=== PATIENT | male | born 1965 | race Caucasian/White ===

== ENCOUNTER 2019-04-09 21:11 | Emergency (ER) | payer OTHER ==
[~2019-04-09] VITALS: Ht 185.4 cm; Wt 84.4 kg
[~2019-04-09 21:11] MED LIST: ALBU2.5V8 IH; ATOR10TA60 PO; ATOR20TA58 PO; DULO30CA43 PO; GABA600T7 PO; GEMF600T8 PO; HYDR-2155 PO; INSU100I11 SQ; INSU100V8 SQ; LANS30CA PO; METF750T2 PO; METO10TA PO; MORP50CA19 PO; NORT50CA PO; ONDA4TAB10 SL; RANI150T2 PO
[2019-04-09] MEDS ORDERED: IV NORMAL SALINE 1,000ML 1,000 ML IV ONE ×2 (21:45→23:00)
[2019-04-09] MEDS ORDERED: IOHEXOL 300 MG/ML 75 ML VIAL. IV ONE (22:00)
[2019-04-09] MEDS ORDERED: ONDANSETRON PF 4 MG/2 ML VIAL. IV ONE (22:00)
[2019-04-09 22:13] LABS: BASO # 0.1 x10^3/uL (0.0-0.2); BASO % 1 % (0-3); EOS # 0.3 x10^3/uL (0.0-0.7); EOS % 3 % (0-3); HEMATOCRIT 40.7 % (39.0-53.0); HEMOGLOBIN 13.5 g/dL (13.0-17.5); LYMPH % 24 % (24-48); MEAN CORPUSCULAR HEMOGLOBIN 29 pg (25-35); MEAN CORPUSCULAR HGB CONC 33 g/dL (31-37); MEAN CORPUSCULAR VOLUME 88 fL (79-100); MONO # 0.7 x10^3/uL (0.0-1.1); MONO % 8 % (0-9); NEUT # 5.3 x10^3uL (1.8-7.7); NEUT % 64 % (31-73); PLATELET COUNT 225 x10^3/uL (140-400); RED BLOOD COUNT 4.63 x10^6/uL (4.30-5.70); RED CELL DISTRIBUTION WIDTH 13.3 % (11.5-14.5); WHITE BLOOD COUNT 8.2 x10^3/uL (4.0-11.0)
[2019-04-09 22:31] LABS: ALBUMIN 3.5 g/dL (3.4-5.0); ALBUMIN/GLOBULIN RATIO 0.9 (1.0-1.7); CALCIUM 9.3 mg/dL (8.5-10.1); CREATININE 1.3 mg/dL (0.7-1.3); GFR 57.5; TOTAL BILIRUBIN 0.2 mg/dL (0.2-1.0); TOTAL PROTEIN 7.2 g/dL (6.4-8.2)
[2019-04-09] MEDS ORDERED: MORPHINE SULFATE 4 MG/ML DISP.SYRIN. IV ONE (23:00)
[2019-04-09] MEDS ORDERED: INSULIN REGULAR 100 UNIT/ML 3ML VIAL. IV ONE (23:00)
--- NOTE | 2019-04-09 23:24 | RAD ---
CT SCAN OF THE ABDOMEN AND PELVIS WITH IV CONTRAST. History: Abdominal pain Comparison:None. Procedure: Contiguous axial images of the abdomen and pelvis were performed after the administration of 75 cc of Omni 300 IV contrast and without oral contrast. CT Abdomen with contrast: Findings: Liver: Unremarkable Spleen: Unremarkable Pancreas: Unremarkable Adrenal Glands: Unremarkable Kidneys: Unremarkable There is no mass or lymphadenopathy. There is no free air. There is no free fluid. Impression: No acute findings. End Impression CT Pelvis with Contrast: Findings: The urinary bladder appears normal. There is no free fluid. There is no lymphadenopathy. The appendix is normal. Impression: No acute findings. PQRS Compliance Statement: One or more of the following individualized dose reduction techniques were utilized for this examination: 1. Automated exposure control 2. Adjustment of the mA and/or kV according to patient size 3. Use of iterative reconstruction technique Electronically signed by: Orlando Rouse III, MD (04/09/2019 11:21 PM) [facility]
--- NOTE | 2019-04-09 23:47 | PHYS DOC ---
Past History Past Medical History: Asthma, Diabetes, GERD, High Cholesterol, Other Past Surgical History: Cholecystectomy, Other Smoking: Cigarettes, Greater than 1 pack/day Alcohol Use: None Drug Use: None Adult General Chief Complaint Chief Complaint: ABDOMINAL PAIN HPI HPI 54-year-old male presents with epigastric abdominal pain and hyperglycemia. The patient is a diabetic on insulin. He knows that his blood sugar has been high today. He is not sure how high. He admits that he has had difficulty keeping it under 300 for a couple days. He is also had some epigastric discomfort on and off for several days. He has a history of pancreatitis and is concerned this could be the cause of his abdominal pain. He describes the pain as a cramping sensation. It is intermittent. Doesn't seem to have a pattern with food. Patient also states having fibromyalgia, so his skin is very sensitive. He denies fever or chills. Review of Systems Review of Systems Constitutional: Denies fever or chills [] Eyes: Denies change in visual acuity, redness, or eye pain [] HENT: Denies nasal congestion or sore throat [] Respiratory: Denies cough or shortness of breath [] Cardiovascular: No additional information not addressed in HPI [] GI: Epigastric abdominal pain, nausea, vomiting. Denies bloody stools or d iarrhea [] : Denies dysuria or hematuria [] Musculoskeletal: Denies back pain or joint pain [] Integument: Denies rash or skin lesions [] Neurologic: Denies headache, focal weakness or sensory changes [] Endocrine: Polyuria[] All other systems were reviewed and found to be within normal limits, except as documented in this note. Current Medications Current Medications Current Medications Medications (Trade) Dose Ordered Sig/[facility] Start Time Stop Time Status Last Admin Dose Admin Insulin Human Regular (HumuLIN R VIAL) 10 unit 1X ONCE 04/09/19 23:00 04/09/19 23:01 DC 04/09/19 22:48 10 UNIT Iohexol (Omnipaque 300 Mg/ml) 75 ml 1X ONCE 04/09/19 22:00 04/09/19 22:01 DC 04/09/19 22:41 75 ML Morphine Sulfate (Morphine 4mg Syringe) 4 mg 1X ONCE 04/09/19 23:00 04/09/19 23:01 DC 04/09/19 22:48 4 MG Ondansetron HCl (Zofran) 4 mg 1X ONCE 04/09/19 22:00 04/09/19 22:01 DC 04/09/19 21:57 4 MG Sodium Chloride 1,000 ml @ 1,000 mls/hr 1X ONCE 04/09/19 23:00 04/09/19 23:59 04/09/19 23:00 1,000 MLS/HR Allergies Allergies Allergies Coded Allergies Type Severity Reaction Last Updated Verified Penicillins Allergy Severe SWELLING 04/09/19 No Physical Exam Physical Exam Constitutional: Well developed, well nourished, no acute distress, non-toxic appearance. [] HENT: Normocephalic, atraumatic, bilateral external ears normal, oropharynx moist, no oral exudates, nose normal. [] Eyes: PERRLA, EOMI, conjunctiva normal, no discharge. [] Neck: Normal range of motion, no tenderness, supple, no stridor. [] Cardiovascular:Heart rate regular rhythm, no murmur [] Lungs & Thorax: Bilateral breath sounds clear to auscultation [] Abdomen: Bowel sounds normal, soft, mild diffuse tenderness, no masses, no pulsatile masses. [] Skin: Warm, dry, no erythema, no rash. [] Back: No tenderness, no CVA tenderness. [] Extremities: No tenderness, no cyanosis, no clubbing, ROM intact, no edema. [] Neurologic: Alert and oriented X 3, normal motor function, normal sensory function, no focal deficits noted. [] Psychologic: Affect normal, judgement normal, mood normal. [] Current Patient Data Vital Signs Vital Signs Date Time Temp Pulse Resp B/P (MAP) Pulse Ox O2 Delivery O2 Flow Rate FiO2 04/09/19 21:27 98.0 73 16 97 Room Air Lab Results Laboratory Tests Test 04/09/19 21:50 White Blood Count 8.2 x10^3/uL (4.0-11.0) Red Blood Count 4.63 x10^6/uL (4.30-5.70) Hemoglobin 13.5 g/dL (13.0-17.5) Hematocrit 40.7 % (39.0-53.0) Mean Corpuscular Volume 88 fL (79-100) Mean Corpuscular Hemoglobin 29 pg (25-35) Mean Corpuscular Hemoglobin Concent 33 g/dL (31-37) Red Cell Distribution Width 13.3 % (11.5-14.5) Platelet Count 225 x10^3/uL (140-400) Neutrophils (%) (Auto) 64 % (31-73) Lymphocytes (%) (Auto) 24 % (24-48) Monocytes (%) (Auto) 8 % (0-9) Eosinophils (%) (Auto) 3 % (0-3) Basophils (%) (Auto) 1 % (0-3) Neutrophils # (Auto) 5.3 x10^3uL (1.8-7.7) Lymphocytes # (Auto) 2.0 x10^3/uL (1.0-4.8) Monocytes # (Auto) 0.7 x10^3/uL (0.0-1.1) Eosinophils # (Auto) 0.3 x10^3/uL (0.0-0.7) Basophils # (Auto) 0.1 x10^3/uL (0.0-0.2) Sodium Level 130 mmol/L (136-145) L Potassium Level 4.0 mmol/L (3.5-5.1) Chloride Level 97 mmol/L (98-107) L Carbon Dioxide Level 21 mmol/L (21-32) Anion Gap 12 (6-14) Blood Urea Nitrogen 23 mg/dL (8-26) Creatinine 1.3 mg/dL (0.7-1.3) Estimated GFR (Cockcroft-Gault) 57.5 BUN/Creatinine Ratio 18 (6-20) Glucose Level 609 mg/dL (70-99) *H Calcium Level 9.3 mg/dL (8.5-10.1) Total Bilirubin 0.2 mg/dL (0.2-1.0) Aspartate Amino Transferase (AST) 8 U/L (15-37) L Alanine Aminotransferase (ALT) 12 U/L (16-63) L Alkaline Phosphatase 123 U/L (46-116) H Total Protein 7.2 g/dL (6.4-8.2) Albumin 3.5 g/dL (3.4-5.0) Albumin/Globulin Ratio 0.9 (1.0-1.7) L Lipase 169 U/L (73-393) EKG EKG [] Radiology/Procedures Radiology/Procedures [] Impressions: CT SCAN OF THE ABDOMEN AND PELVIS WITH IV CONTRAST. History: Abdominal pain Comparison:None. Procedure: Contiguous axial images of the abdomen and pelvis were performed after the administration of 75 cc of Omni 300 IV contrast and without oral contrast. CT Abdomen with contrast: Findings: Liver: Unremarkable Spleen: Unremarkable Pancreas: Unremarkable Adrenal Glands: Unremarkable Kidneys: Unremarkable There is no mass or lymphadenopathy. There is no free air. There is no free fluid. Impression: No acute findings. End Impression CT Pelvis with Contrast: Findings: The urinary bladder appears normal. There is no free fluid. There is no lymphadenopathy. The appendix is normal. Impression: No acute findings. PQRS Compliance Statement: One or more of the following individualized dose reduction techniques were utilized for this examination: 1. Automated exposure control 2. Adjustment of the mA and/or kV according to patient size 3. Use of iterative reconstruction technique Electronically signed by: Azucena Rouse III, MD (04/09/2019 11:21 PM) [facility] DICTATED AND SIGNED BY: AZUCENA ROUSE III, MD DATE: 04/09/192320 CC: DAQUAN GUTIÉRREZ DO; KELSY LEE MD ~ Course & Med Decision Making Course & Med Decision Making Pertinent Labs and Imaging studies reviewed. (See chart for details) The patient's labs are unremarkable except for an elevated blood sugar. His anion gap is normal. His lipase is normal. We have given the patient 2 L of normal saline and 10 units of regular insulin. His pain has improved. His repeat blood sugar is pending. The patient's repeat blood sugars just over 200. His CT of the abdomen and pelvis is unremarkable. He is feeling better at this time. He is stable for discharge. [] Dragon Disclaimer Dragon Disclaimer This electronic medical record was generated, in whole or in part, using a voice recognition dictation system. Departure Departure: Impression: Primary Impression: Hyperglycemia Disposition: HOME, SELF-CARE Condition: IMPROVED Referrals: KELSY LEE MD (PCP) Patient Instructions: Hyperglycemia, Tjdu-ay-Avin DAQUAN GUTIÉRREZ DO Apr 09, 2019 23:47
[2019-04-10 00:21] VITALS: BP 120/67
== END 2019-04-10 00:30 | disposition home or self-care (01) ==
LOC: ER 21:11
DX: E11.65 Type 2 diabetes mellitus with hyperglycemia (principal); R10.13 Epigastric pain; J45.909 Unspecified asthma, uncomplicated; K21.9 Gastro-esophageal reflux disease without esophagitis; E78.00 Pure hypercholesterolemia, unspecified; F17.210 Nicotine dependence, cigarettes, uncomplicated; Z90.49 Acquired absence of other specified parts of digestive tract; Z88.0 Allergy status to penicillin
CPT/HCPCS: 36415; 74177; 80053; 82947; 83690; 85025; 96361; 96374; 96375; 99285; J1815; J2270; J2405; Q9967; J7030

== ENCOUNTER → 2020-10-03 | Outpatient (CLI) | payer MEDICAID ==
[~2020-10-03] MED LIST changes: +DULO-4 PO; -DULO30CA43 PO; -METF750T2 PO; +METF750T39 PO
--- NOTE | 2020-10-03 13:37 | RAD ---
Right lower extremity venous duplex ultrasound study without comparison for right leg swelling. TECHNIQUE AND FINDINGS: Real-time grayscale and color Doppler evaluation of the right lower extremity is performed. The right common femoral, superficial femoral, and popliteal veins are patent demonstr ating normal compressibility and augmentation of flow. There is normal color flow in the posterior ti bial veins. IMPRESSION: 1. No evidence of DVT. Electronically signed by: Etienne Blanco MD (10/03/2020 1:35 PM) [id number]
== END ==
LOC: US 12:47
PROVIDERS: ATTEND Family Medicine
DX: R22.41 Localized swelling, mass and lump, right lower limb (principal)
CPT/HCPCS: 93971

== ENCOUNTER 2020-12-15 17:30 | Emergency (ER) | payer MEDICAID ==
[~2020-12-15] VITALS: Ht 185.4 cm; Wt 92.3 kg
[~2020-12-15 17:30] MED LIST changes: +GEMF-24 PO; -GEMF600T8 PO
--- NOTE | 2020-12-15 18:28 | PHYS DOC ---
Past History Past Medical History: Asthma, Diabetes, GERD, High Cholesterol, Other Past Surgical History: Cholecystectomy, Other Smoking: Cigarettes, Greater than 1 pack/day Alcohol Use: None Drug Use: None Adult General Chief Complaint Chief Complaint: HEADACHE HPI HPI Patient is a 55-year-old male who presents for chronic headache. States this has been going on "since I was 8 years old". Denies any trauma, recent ingestion or change in medications. Reports current headache has been going on for 3 days without relief. Describes it as dull tension-like headache. Patient has been taking previously prescribed Imitrex in addition to various NSAIDs without significant relief in pain. Nothing known alleviates symptoms. Timing of symptoms has been constant since onset. Has not followed up with his primary care physician for this. Is a cigarette abuser, denies any other illicit drug abuse. Reports history of noninsulin-dependent type 2 diabetes, mild chronic kidney disease only. Denies any known history of hypertension, does not check his blood pressure daily at home, states whenever he has checked it has been "high". Patient denies fever, chills, vision changes, chest pain, shortness of breath, abdominal pain, dysuria, neurologic deficits Review of Systems Review of Systems Fourteen body systems of review of systems have been reviewed. See HPI for pertinent positives and negative responses, other hassan all other systems are negative, non-pertinent or non-contributory Allergies Allergies Allergies Coded Allergies Type Severity Reaction Last Updated Verified Penicillins Allergy Severe SWELLING 04/09/19 No Physical Exam Physical Exam Constitutional: Well developed, well nourished, no acute distress, non-toxic appearance. Smells of tobacco HENT: Normocephalic, atraumatic, bilateral external ears normal, oropharynx moist, no oral exudates, nose normal. Eyes: PERRLA, EOMI, conjunctiva normal, no discharge. Neck: Normal range of motion, no tenderness, supple, no stridor. Cardiovascular: Heart rate regular, sinus rhythm, no murmurs rubs or gallops Lungs & Thorax: Bilateral crackles without increased work of breathing or accessory muscle use, no respiratory distress Abdomen: Bowel sounds normal, soft, no tenderness, no masses, no pulsatile masses. Nonsurgical abdomen, no peritoneal signs Skin: Warm, dry, no erythema, no rash. Back: No tenderness, no CVA tenderness. Extremities: No tenderness, no cyanosis, no clubbing, ROM intact, no edema. Neurologic: Alert and oriented X 3, cranial nerves II through XII intact, normal motor & sensory function, no focal deficits noted. Psychologic: Affect normal, judgement normal, grumpy mood Current Patient Data Vital Signs Vital Signs Date Time Temp Pulse Resp B/P (MAP) Pulse Ox O2 Delivery O2 Flow Rate FiO2 12/15/20 17:37 98.3 54 16 181/79 (113) 96 Room Air Lab Results Laboratory Tests Test 12/15/20 18:07 Sodium Level 139 mmol/L Potassium Level 5.1 mmol/L Chloride Level 106 mmol/L Carbon Dioxide Level 25 mmol/L Anion Gap 8 Blood Urea Nitrogen 25 mg/dL Creatinine 1.5 mg/dL Estimated GFR (Cockcroft-Gault) 48.6 Glucose Level 480 mg/dL Calcium Level 8.4 mg/dL Current Medications Medications (Trade) Dose Ordered Sig/[facility] Route PRN Reason Start Time Stop Time Status Last Admin Dose Admin Acetaminophen (Tylenol) 650 mg 1X ONCE PO 12/15/20 18:30 12/15/20 18:31 DC 12/15/20 18:40 Lisinopril (Prinivil) 5 mg 1X ONCE PO 12/15/20 19:30 12/15/20 19:31 DC 12/15/20 19:27 EKG EKG [] Radiology/Procedures Radiology/Procedures [] Heart Score C/O Chest Pain: No HEART Score for Chest Pain: HEART Score for Chest Pain Response (Comments) Value History Slighlty/Non-Suspicious 0 Age >45 - < 65 1 Risk Factors 1 or 2 Risk Factors 1 Total 2 Risk Factors: Risk Factors: DM, Current or recent (<one month) smoker, HTN, HLP, family history of CAD, obesity. Risk Scores: Risk Factors: DM, Current or recent (<one month) smoker, HTN, HLP, family history of CAD, obesity. Course & Med Decision Making Course & Med Decision Making Patient with high blood pressure otherwise hemodynamically stable with history consistent with chronic headaches. Physical exam unremarkable. Diagnostic work-up benign Patient using Imitrex and NSAIDs without relief. Patient likely has undiagnosed/untreated hypertension that is likely causing his presenting symptoms. Given he is diabetic with mild chronic kidney disease, discussed starting lisinopril I educated patient on medication and he was amenable to starting this today. 5 mg p.o. administered while in ER and tolerated well. Patient advised to keep blood pressure log to review with primary care physician at outpatient setting Patient has good access to primary care physician and can be seen this upcoming week which I feel is appropriate for repeat evaluation. Strict return precautions discussed with good understanding, all questions and concerns addr essed prior to your departure in stable condition Geovanna Disclaimer Dragon Disclaimer This electronic medical record was generated, in whole or in part, using a voice recognition dictation system. Departure Departure: Impression: Primary Impression: HTN (hypertension) Additional Impressions: Chronic headaches Diabetes Elevated serum creatinine Disposition: DC HOME SELF CARE/HOMELESS Condition: STABLE Referrals: KELSY LEE MD (PCP) Patient Instructions: Managing Your High Blood Pressure, Tension Headache Additional Instructions: You were seen for a headache. There is no emergent findings per your physical exam or diagnostic work-up while in ER setting. This is been a chronic problem for you, I suspect untreated/diagnosed hypertension as cause. You should cont inue to take prescribed lisinopril daily until you see your primary care physician for repeat evaluation. As discussed, please ensure you keep a daily blood pressure log for your primary care physician's review. You will need repeat labs at that time. You should return to the ED if you develop worsening pain, vision change, numbness, tingling, weakness, vomiting, fever, neck pain, or any other new or concerning symptoms. You need to follow up with your primary care physician for further evaluation and treatment. Scripts Lisinopril (LISINOPRIL) 5 Mg Tablet 1 TAB PO DAILY for HTN, #30 TAB 5 Refills Prov: RAYNA FRANKS DO 12/15/20 Problem Qualifiers RAYNA FRANKS DO Dec 15, 2020 18:28
[2020-12-15] MEDS ORDERED: ACETAMINOPHEN 325 MG TABLET PO ONE (18:30)
[2020-12-15 18:50] LABS: CALCIUM 8.4 mg/dL (8.5-10.1); CREATININE 1.5 mg/dL (0.7-1.3); GFR 48.6; POTASSIUM 5.1 mmol/L (3.5-5.1)
[2020-12-15 19:27] VITALS: BP 168/80
[2020-12-15] MEDS ORDERED: LISI-517 PO (19:28)
[2020-12-15] MEDS ORDERED: LISINOPRIL 5 MG TABLET. PO ONE (19:30)
== END 2020-12-15 19:35 | disposition home or self-care (01) ==
LOC: ER 17:30
DX: I10 Essential (primary) hypertension (principal); R51.9 Headache, unspecified; E11.9 Type 2 diabetes mellitus without complications; R79.89 Other specified abnormal findings of blood chemistry; J45.909 Unspecified asthma, uncomplicated; K21.9 Gastro-esophageal reflux disease without esophagitis; E78.00 Pure hypercholesterolemia, unspecified; F17.210 Nicotine dependence, cigarettes, uncomplicated; Z90.49 Acquired absence of other specified parts of digestive tract; Z88.0 Allergy status to penicillin
CPT/HCPCS: 36415; 80048; 99283

== ENCOUNTER 2020-12-18 08:31 | Emergency (ER) | payer MEDICAID ==
[~2020-12-18] VITALS: Ht 185.4 cm; Wt 92.3 kg
[~2020-12-18 08:31] MED LIST changes: +LISI-517 PO
[2020-12-18] MEDS ORDERED: DEXAMETHASONE SOD PHOS 10 MG/ML VIAL. IVP ONE (08:45)
[2020-12-18] MEDS ORDERED: PROCHLORPERAZINE 10 MG/2 ML VIAL. IV ONE (08:45)
[2020-12-18] MEDS ORDERED: diphenhydrAMINE 50 MG/ML VIAL IVP ONE (08:45)
[2020-12-18] MEDS ORDERED: IV RINGERS SOLUTION,LACTATED 1,000 ML IV SCH (08:45)
--- NOTE | 2020-12-18 08:46 | PHYS DOC ---
Past History Past Medical History: Asthma, Diabetes, GERD, High Cholesterol, Other Past Surgical History: Cholecystectomy, Other Smoking: Cigarettes, Greater than 1 pack/day Alcohol Use: None Drug Use: None General Adult EDM: Chief Complaint: HEADACHE HPI: HPI: 55-year-old male past medical history of hyperlipidemia, GERD, tobacco dependence and history of migraines, presents to the ED with complaints of headache for the past 2 weeks, located left side of his head with right jaw pain, was seen in ED 3 days ago for same complaint. States he's seen "all the specialists" for chronic migraines, "nothing works." Previously prescribed Imitrex and NSAIDs, reports no relief in pain with these medications. H/o "all the MRIs/CTs/studies." Does not know his official diagnosis, is a poor historian. Associated nausea and worsening vision but states "I've always had vision problems." Reports no history of hypertension. Was seen by Dr. Lee (pcp) 2 months ago (no HTN at that time) and was sent to ed to r/o RLE DVT (RLE swelling x 1 yr). EMR was reviewed. Creatinine on December 15 was 1.5 and blood pressure was 181/79. Was started on lisinopril [address] Nixon. Denies alcohol, IVDU or illicit drug use. Review of Systems: Review of Systems: Constitutional: Denies fever or chills Eyes: Denies vision loss or eye discharge HENT: Denies nasal congestion or sore throat Respiratory: Denies cough or shortness of breath Cardiovascular: Denies chest pain or edema GI: Denies abdominal pain, vomiting, bloody stools or diarrhea : Denies dysuria or hematuria Musculoskeletal: Denies back pain or joint pain Integument: Denies rash or diaphoresis Neurologic: Denies neck stiffness, focal weakness or sensory changes Endocrine: Denies polyuria or polydipsia Lymphatic: Denies swollen glands Psychiatric: Denies depression or anxiety Allergies: Allergies: Allergies Coded Allergies Type Severity Reaction Last Updated Verified Penicillins Allergy Severe SWELLING 04/09/19 No Physical Exam: PE: Constitutional: Well developed, well nourished, no acute distress, non-toxic appearance. HENT: Normocephalic, atraumatic, dry mucous membranes, no teeth Eyes: EOMI, conjunctiva normal, no discharge. Neck: Normal range of motion, supple, Cardiovascular: S1/2 present, regular rhythm Lungs & Thorax: Speaking in full sentences, bilateral equal chest rise, no tachypnea or increased work of breathing Abdomen: soft, no tenderness, Skin: Warm, dry, no erythema, no rash. [] Extremities: No tenderness, no cyanosis, mild pitting RLE edema > LLE Neurologic: Cranial nerves II through XII intact, alert and oriented X 3, normal motor function, normal sensory function, no focal deficits noted. [] Psychologic: flat affect, in no distress, does not appear to be concerned/worried, interruptions my exam to answer his cell phone EKG: EKG: Sinus rhythm at 73 bpm, normal intervals, T wave inversion lead III, no ST elevations or ST depressions, every third sinus beat there appears to be a PAC, will repeat EKG 1019 sinus rhythm 81 bpm, no axis deviation, normal intervals, no T wave inversions, no ST elevations or ST depressions with 2:1 conduction w/PAC Radiology/Procedures: Radiology/Procedures: IMAGING REPORT Signed PATIENT: NUNU HARMON ACCOUNT: [id number] : 1965 LOCATION: ER AGE: 55 SEX: M EXAM STATUS: REG ER ORD. PHYSICIAN: JUDY SAHNI DO REASON: headache PROCEDURE: CT HEAD WO CONTRAST INDICATION: Reason: headache / Spl. Instructions: / History: COMPARISON: None. TECHNIQUE: Axial CT images obtained through the head without intravenous contrast. One or more of the following individualized dose reduction techniques were utilized for this examination: 1. Automated exposure control; 2. Adjustment of the mA and/or kV according to patient size; 3. Use of iterative reconstruction technique. FINDINGS: No intracranial hemorrhage. No midline shift. Basal cisterns patents. Ventricles and sulci are globally prominent. No acute osseous abnormality. Orbits and paranasal sinuses unremarkable. Scattered foci of low attenuation within the white matter. IMPRESSION: 1. No acute intracranial hemorrhage. 2. Scattered regions of low attenuation within the white matter. Non-specific in nature but frequently secondary to chronic small vessel ischemic disease. 3. Prominence of ventricles and sulci which is frequently secondary to age related volume loss. Electronically signed by: Nilo Wheat MD (12/18/2020 9:08 AM) [id number] DICTATED AND SIGNED BY: NILO WHEAT MD DATE: 12/18/20902 CC: KELSY LEE MD; JUDY SAHNI DO ~MTH0 0 IMAGING REPORT Signed PATIENT: NUNU HARMON ACCOUNT: [id number] : 1965 LOCATION: ER AGE: 55 SEX: M EXAM STATUS: REG ER ORD. PHYSICIAN: JUDY SAHNI DO REASON: headache, short of breath PROCEDURE: PORTABLE CHEST 1V XR CHEST 1V Clinical History: Reason: headache, short of breath / Spl. Instructions: / History: Technique: AP view of the chest was obtained at 12/18/2020 8:44 AM. Comparison: None. Findings: The cardiomediastinal silhouette is normal. The pulmonary vasculature is normal. There is increased reticular opacities of lungs including curly B lines. Impression: Interstitial edema could be secondary to CHF or atypical pneumonia. Electronically signed by: Azucena Burgos III, MD (12/18/2020 9:06 AM) [id number] DICTATED AND SIGNED BY: AZUCENA BURGOS III, MD DATE: 12/18/20903 CC: KELSY LEE MD; JUDY SAHNI DO ~MTH0 0 Heart Score: C/O Chest Pain: No Risk Factors: Risk Factors: DM, Current or recent (<one month) smoker, HTN, HLP, family history of CAD, obesity. Risk Scores: Score 0 - 3: 2.5% MACE over next 6 weeks - Discharge Home Score 4 - 6: 20.3% MACE over next 6 weeks - Admit for Clinical Observation Score 7 - 10: 72.7% MACE over next 6 weeks - Early Invasive Strategies Course & Med Decision Making: Course & Med Decision Making Pertinent Labs and Imaging studies reviewed. (See chart for details) Chest x-ray concerning for atypical pneumonia versus interstitial infiltrates/CHF. Patient with no shortness of breath, orthopnea or chest pain. Given history of COPD will prescribe Z-Art and refer to cardiology for nonemergent outpatient echocardiogram. Dragon Disclaimer: Geovanna Disclaimer: This electronic medical record was generated, in whole or in part, using a voice recognition dictation system. Departure Departure: Impression: Primary Impression: Headache Additional Impressions: Uncontrolled hypertension Acute kidney injury Atypical pneumonia Disposition: 01 DC HOME SELF CARE/HOMELESS Condition: STABLE Referrals: KELSY LEE MD (PCP) Within 2 to 3 days for blood pressure recheck and to evaluate renal insufficiency Patient Instructions: Acute Kidney Injury, General Headache Without Cause, Hypertension Additional Instructions: FOLLOW UP WITH NEPHROLOGY: For renal insufficiency (creatinine of 1.5 and 1.6 yesterday and today respectively) [facility] Address: [address] [place] [address] [address] [place] [address] FOLLOW UP WITH CARDIOLOGY: For nonemergent echocardiogram given chest x-ray finding of interstitial edema/chf [facility] [address] [facility] [address] [place] [place] [address] [facility] [address] [place] [id number] EMERGENCY DEPARTMENT GENERAL DISCHARGE INSTRUCTIONS Thank you for coming to [facility] (ED) today and trusting us with you care. We trust that you had a positivie experience in our Emergency Department. If you wish to speak to the department management, you may call the director at [phone]. YOUR FOLLOW UP INSTRUCTIONS ARE FOLLOWS: 1. Do you have a private Doctor? If you do not have a private doctor, please ask for a resource list of physicians or clinics that may be able to assist you with follow up care. 2. The Emergency Physician has interpreted your x-rays. The X-Ray specialist will also review them. If there is a change in the findings, you will be notified in 48 hours when at all possible. 3. A lab test or culture has been done, your results will be reviewed and you will be notified if you need a change in treatment. ADDITIONAL INSTRUCTIONS AND INFORMATION: 1. Your care today has been supervised by a physician who is specially trained in emergency care. Many problems require more than one evaluation for a complete diagnosis and treatment. We recommend that you schedule your follow up appointment as recommended to ensure complete treatment of you illness or injury. If you are unable to obtain follow up care and continue to have a problem, or if your condition worsens, we recommend that you return to the ED. 2. We are not able to safely determine your condition over the phone nor are we able to give sound medical advice over the phone. For these safety reasons, if you call for medical advice we will ask you to come to the ED for further evaluation. 3. If you have any questions regarding these discharge instructions please call the ED at [phone]. SAFETY INFORMATION: In the interest of safety, wellness, and injury prevention; we encourage you to wear your sealbelt, if you smoke; quite smoking, and we encourage family to use a protective helmet for bicycling and other sporting events that present an increased risk for head injury. IF YOUR SYMPTOMS WORSEN OR NEW SYMPTOMS DEVELOP, OR YOU HAVE CONCERNS ABOUT YOUR CONDITION; OR IF YOUR CONDITION WORSENS WHILE YOU ARE WAITING FOR YOUR FOLLOW UP APPOINTMENT; EITHER CONTACT YOUR PRIMARY CARE DOCTOR, THE PHYSICIAN WHOSE NAME AND NUMBER YOU WERE GIVEN, OR RETURN TO THE ED IMMEDIATELY. Scripts Azithromycin (AZITHROMYCIN TABLET) 250 Mg Tablet 1 PKG PO UD for lung nodule for 5 Days, #6 TAB 0 Refills 2 the first day followed by 1 for days 2-5 Prov: JUDY SAHNI DO 12/18/20 JUDY SAHNI DO Dec 18, 2020 08:46
--- NOTE | 2020-12-18 08:53 | EKG ---
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
--- NOTE | 2020-12-18 09:08 | RAD ---
XR CHEST 1V Clinical History: Reason: headache, short of breath / Spl. Instructions: / History: Technique: AP view of the chest was obtained at 12/18/2020 8:44 AM. Comparison: None. Findings: The cardiomediastinal silhouette is normal. The pulmonary vasculature is normal. There is increased r eticular opacities of lungs including curly B lines. Impression: Interstitial edema could be secondary to CHF or atypical pneumonia. Electronically signed by: Orlando Rouse III, MD (12/18/2020 9:06 AM) [id number]
--- NOTE | 2020-12-18 09:10 | RAD ---
INDICATION: Reason: headache / Spl. Instructions: / History: COMPARISON: None. TECHNIQUE: Axial CT images obtained through the head without intravenous contrast. One or more of the following individualized dose reduction techniques were utilized for this examinat ion: 1. Automated exposure control; 2. Adjustment of the mA and/or kV according to patient size; 3 . Use of iterative reconstruction technique. FINDINGS: No intracranial hemorrhage. No midline shift. Basal cisterns patents. Ventricles and sulci are globally prominent. No acute osseous abnormality. Orbits and paranasal sinuses unremarkable. Scattered foci of low attenuation within the white matter. IMPRESSION: 1. No acute intracranial hemorrhage. 2. Scattered regions of low attenuation within the white matter. Non-specific in nature but frequen tly secondary to chronic small vessel ischemic disease. 3. Prominence of ventricles and sulci which is frequently secondary to age related volume loss. Electronically signed by: Lane Terry MD (12/18/2020 9:08 AM) [id number]
[2020-12-18 09:30] LABS: BASO # 0.1 x10^3/uL (0.0-0.2); BASO % 1 % (0-3); EOS # 0.3 x10^3/uL (0.0-0.7); EOS % 2 % (0-3); HEMATOCRIT 38.1 % (39.0-53.0); HEMOGLOBIN 12.5 g/dL (13.0-17.5); LYMPH # 1.6 x10^3/uL (1.0-4.8); LYMPH % 12 % (24-48); MEAN CORPUSCULAR HEMOGLOBIN 29 pg (25-35); MEAN CORPUSCULAR HGB CONC 33 g/dL (31-37); MEAN CORPUSCULAR VOLUME 89 fL (79-100); MONO # 0.8 x10^3/uL (0.0-1.1); MONO % 6 % (0-9); NEUT # 10.2 x10^3uL (1.8-7.7); NEUT % 79 % (31-73); PLATELET COUNT 203 x10^3/uL (140-400); RED BLOOD COUNT 4.28 x10^6/uL (4.30-5.70); RED CELL DISTRIBUTION WIDTH 13.2 % (11.5-14.5); WHITE BLOOD COUNT 12.9 x10^3/uL (4.0-11.0)
[2020-12-18 09:40] LABS: AMPHETAMINE/METHAMPHETAMINE NEG (NEG); BARBITURATES NEG (NEG); BENZODIAZEPINES NEG (NEG); CANNABINOIDS NEG (NEG); COCAINE NEG (NEG); METHADONE NEG (NEG); OPIATES NEG (NEG); PHENCYCLIDINE NEG (NEG)
[2020-12-18 09:42] LABS: CALCIUM 8.2 mg/dL (8.5-10.1); CREATININE 1.6 mg/dL (0.7-1.3); GFR 45.1; POTASSIUM 4.8 mmol/L (3.5-5.1)
[2020-12-18 09:48] LABS: ALBUMIN 2.4 g/dL (3.4-5.0); ALBUMIN/GLOBULIN RATIO 0.8 (1.0-1.7); TOTAL PROTEIN 5.5 g/dL (6.4-8.2)
[2020-12-18 09:49] LABS: BACTERIA,URINE 0 /HPF (0-FEW); BILIRUBIN,URINE NEG (NEG); CLARITY,URINE CLEAR; COLOR,URINE YELLOW; GLUCOSE,URINE >=1000 mg/dL (NEG); NITRITE,URINE NEG (NEG); UROBILINOGEN,URINE 0.2 mg/dL (0.2 mg/dL); WBC,URINE OCC /HPF (0-4)
[2020-12-18 09:50] LABS: HYALINE CASTS, URINE FEW /HPF; SQUAMOUS EPITHELIAL CELL,UR OCC /LPF
[2020-12-18 10:13] LABS: TOTAL BILIRUBIN 0.1 mg/dL (0.2-1.0)
--- NOTE | 2020-12-18 10:33 | EKG ---
[address] [address] Test Date: 2020-12-18 Test Time: 10:19:26 Pat Name: NUNU HARMON Department: Room: Gender: M [address] [address] Magistrate: LEBRON : 1965 Requested By: JUDY SAHNI Order Number: [id number] Reading MD: Measurements Intervals [place] Rate: 81 P: SD: QRS: 47 QRSD: 80 T: 29 QT: 370 QTc: 435 Interpretive Statements IRREGULAR RHYTHM, NO P-WAVE FOUND LOW LIMB LEAD VOLTAGE NO SPECIFIC ECG ABNORMALITIES RI6.02 No previous ECG available for comparison
[2020-12-18 11:44] VITALS: BP 128/90
[2020-12-18] MEDS ORDERED: AZIT250T6 PO (11:55)
== END 2020-12-18 12:24 | disposition home or self-care (01) ==
LOC: ER 08:31
DX: J18.9 Pneumonia, unspecified organism (principal); N17.9 Acute kidney failure, unspecified; I10 Essential (primary) hypertension; K21.9 Gastro-esophageal reflux disease without esophagitis; G43.909 Migraine, unspecified, not intractable, without status migrainosus; E78.00 Pure hypercholesterolemia, unspecified; E11.9 Type 2 diabetes mellitus without complications; J45.909 Unspecified asthma, uncomplicated; F17.210 Nicotine dependence, cigarettes, uncomplicated; Z90.49 Acquired absence of other specified parts of digestive tract; Z88.0 Allergy status to penicillin
CPT/HCPCS: 36415; 70450; 71045; 80053; 80307; 81001; 83880; 84484; 85025; 93005; 96361; 96374; 96375; 99285; J0780; J1100; J1200; J7120

== ENCOUNTER 2021-01-13 01:47 | Emergency (ER) | payer MEDICAID ==
[~2021-01-13] VITALS: Ht 185.4 cm; Wt 92.3 kg
[~2021-01-13 01:47] MED LIST changes: +AZIT250T6 PO
--- NOTE | 2021-01-13 02:29 | EKG ---
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
[2021-01-13 02:40] LABS: BASO # 0.1 x10^3/uL (0.0-0.2); BASO % 1 % (0-3); EOS # 0.5 x10^3/uL (0.0-0.7); EOS % 4 % (0-3); HEMATOCRIT 32.1 % (39.0-53.0); HEMOGLOBIN 10.6 g/dL (13.0-17.5); LYMPH # 2.1 x10^3/uL (1.0-4.8); LYMPH % 20 % (24-48); MEAN CORPUSCULAR HEMOGLOBIN 30 pg (25-35); MEAN CORPUSCULAR HGB CONC 33 g/dL (31-37); MEAN CORPUSCULAR VOLUME 89 fL (79-100); MONO % 9 % (0-9); NEUT # 7.1 x10^3uL (1.8-7.7); NEUT % 66 % (31-73); PLATELET COUNT 241 x10^3/uL (140-400); RED BLOOD COUNT 3.59 x10^6/uL (4.30-5.70); RED CELL DISTRIBUTION WIDTH 15.4 % (11.5-14.5); WHITE BLOOD COUNT 10.8 x10^3/uL (4.0-11.0)
[2021-01-13 02:45] LABS: CALCIUM 7.7 mg/dL (8.5-10.1); CREATININE 2.2 mg/dL (0.7-1.3); GFR 31.2; POTASSIUM 4.8 mmol/L (3.5-5.1)
[2021-01-13 02:59] LABS: ALBUMIN 1.8 g/dL (3.4-5.0); ALBUMIN/GLOBULIN RATIO 0.6 (1.0-1.7); MAGNESIUM 1.4 mg/dL (1.8-2.4); TOTAL BILIRUBIN 0.1 mg/dL (0.2-1.0); TOTAL PROTEIN 4.6 g/dL (6.4-8.2)
[2021-01-13] MEDS ORDERED: diphenhydrAMINE HCL 25 MG CAPSULE PO ONE (03:00)
[2021-01-13] MEDS ORDERED: ACETAMINOPHEN 500 MG TABLET PO ONE (03:00)
--- NOTE | 2021-01-13 03:02 | PHYS DOC ---
Past History Past Medical History: Asthma, CHF, Diabetes, GERD, High Cholesterol, Other Past Surgical History: Cholecystectomy, Other Smoking: Cigarettes, Greater than 1 pack/day Alcohol Use: None Drug Use: None Adult General Chief Complaint Chief Complaint: LOWER EXTREMITY SWELLING HPI HPI Patient is a 55-year-old male with a past medical history significant for congestive heart failure, and diabetes who presents to the emergency department with a chief complaint of bilateral lower extremity swelling. States over the past couple of weeks he has noticed the swelling in his legs bilaterally. States he has had this before but it has been a while. States he thinks he has gained a little bit of weight as well. Denies any dyspnea on exertion, orthopnea, PND. Denies any recent travel, traumas, illnesses, fevers or known ill contacts. Denies any chest pain, diaphoresis, abdominal pain, nausea, vomiting, dysuria, hematuria or blood in the stool. Denies any alcohol or drug use. States he has been otherwise eating and drinking normally for him. States he is making urine and stool proximally normally for him. Review of Systems Review of Systems Constitutional: Denies fever or chills [] Eyes: Denies change in visual acuity, redness, or eye pain [] HENT: Denies nasal congestion or sore throat [] Respiratory: Denies cough or shortness of breath [] Cardiovascular: No additional information not addressed in HPI [] GI: Denies abdominal pain, nausea, vomiting, bloody stools or diarrhea [] : Denies dysuria or hematuria [] Musculoskeletal: Denies back pain or joint pain [] Integument: Denies rash or skin lesions [] Neurologic: Denies headache, focal weakness or sensory changes [] Endocrine: Denies polyuria or polydipsia [] All other systems were reviewed and found to be within normal limits, except as documented in this note. Current Medications Current Medications Current Medications Medications (Trade) Dose Ordered Sig/Marilou Start Time Stop Time Status Last Admin Dose Admin Acetaminophen (Tylenol) 1,000 mg 1X ONCE 01/13/21 03:00 01/13/21 03:01 01/13/21 02:32 1,000 MG Diphenhydramine HCl (Benadryl) 25 mg 1X ONCE 01/13/21 03:00 01/13/21 03:01 01/13/21 02:32 25 MG Allergies Allergies Allergies Coded Allergies Type Severity Reaction Last Updated Verified Penicillins Allergy Severe SWELLING 04/09/19 No Physical Exam Physical Exam Constitutional: Well developed, well nourished, no acute distress, non-toxic appearance. [] HENT: Normocephalic, atraumatic, bilateral external ears normal, oropharynx moist, no oral exudates, nose normal. [] Eyes: conjunctiva normal, no discharge. [] Neck: Normal range of motion, no tenderness, supple, no stridor. [] Cardiovascular:Heart rate regular rhythm, no murmur [] Lungs & Thorax: Patient with scant bilateral lower lobe rhonchi but moving air well and not tachypneic] Abdomen: soft, no tenderness, no masses, no pulsatile masses. [] Skin: Warm, dry, no erythema, no rash. [] Back: no CVA tenderness. [] Extremities: No tenderness, no cyanosis, no clubbing, ROM intact, 1+ pitting edema. [] Neurologic: Alert and oriented X 3, normal motor function, normal sensory function, no focal deficits noted. [] Psychologic: Affect normal, judgement normal, mood normal. [] Current Patient Data Vital Signs Vital Signs Date Time Temp Pulse Resp B/P (MAP) Pulse Ox O2 Delivery O2 Flow Rate FiO2 01/13/21 02:33 87 20 159/93 (115) 98 Room Air 01/13/21 02:05 97.8 Lab Results Laboratory Tests Test 01/13/21 02:25 White Blood Count 10.8 x10^3/uL (4.0-11.0) Red Blood Count 3.59 x10^6/uL (4.30-5.70) L Hemoglobin 10.6 g/dL (13.0-17.5) L Hematocrit 32.1 % (39.0-53.0) L Mean Corpuscular Volume 89 fL (79-100) Mean Corpuscular Hemoglobin 30 pg (25-35) Mean Corpuscular Hemoglobin Concent 33 g/dL (31-37) Red Cell Distribution Width 15.4 % (11.5-14.5) H Platelet Count 241 x10^3/uL (140-400) Neutrophils (%) (Auto) 66 % (31-73) Lymphocytes (%) (Auto) 20 % (24-48) L Monocytes (%) (Auto) 9 % (0-9) Eosinophils (%) (Auto) 4 % (0-3) H Basophils (%) (Auto) 1 % (0-3) Neutrophils # (Auto) 7.1 x10^3uL (1.8-7.7) Lymphocytes # (Auto) 2.1 x10^3/uL (1.0-4.8) Monocytes # (Auto) 1.0 x10^3/uL (0.0-1.1) Eosinophils # (Auto) 0.5 x10^3/uL (0.0-0.7) Basophils # (Auto) 0.1 x10^3/uL (0.0-0.2) Sodium Level 141 mmol/L (136-145) Potassium Level 4.8 mmol/L (3.5-5.1) Chloride Level 111 mmol/L (98-107) H Carbon Dioxide Level 21 mmol/L (21-32) Anion Gap 9 (6-14) Blood Urea Nitrogen 41 mg/dL (8-26) H Creatinine 2.2 mg/dL (0.7-1.3) H Estimated GFR (Cockcroft-Gault) 31.2 BUN/Creatinine Ratio 19 (6-20) Glucose Level 228 mg/dL (70-99) H Calcium Level 7.7 mg/dL (8.5-10.1) L Magnesium Level Pending Total Bilirubin Pending Aspartate Amino Transferase (AST) Pending Alanine Aminotransferase (ALT) Pending Alkaline Phosphatase Pending Troponin I Quantitative 0.025 ng/mL (0-0.055) VX-Yak-G-Type Natriuretic Peptide Pending Total Protein Pending Albumin Pending Albumin/Globulin Ratio Pending EKG EKG Rate of 85, QRS of 78, QTc of 410, no STEMI [] Radiology/Procedures Radiology/Procedures []Study: XR CHEST 1V Indication: Cardiac workup. Comparison: 12/18/2020 Findings: Similar configuration of the cardiomediastinal silhouette and jayy from the prior to include cephalization of the central vasculature. Mildly increased interstitial markings but slightly less pronounced from the prior. No confluent infiltrate, layering effusion or pneumothorax. Mild flattening of the diaphragm. Impression: Mild cephalization of the central vasculature could indicate a volume overload state. There are mildly increased interstitial markings but manifestations of interstitial edema on the comparison are less noticeable on this exam. No layering effusion. Electronically signed by: DAVEY SOLIS MD (01/13/2021 3:00 AM) [facility] Heart Score C/O Chest Pain: No Risk Factors: Risk Factors: DM, Current or recent (<one month) smoker, HTN, HLP, family history of CAD, obesity. Risk Scores: Risk Factors: DM, Current or recent (<one month) smoker, HTN, HLP, family history of CAD, obesity. Course & Med Decision Making Course & Med Decision Making Patient is a 55-year-old male who presents with a chief complaint of bilateral lower extremity edema Signs notable for hypertension. Physical exam noted above. Patient placed on the monitor. EKG noted above with no STEMI. Laboratory analysis notable for elevated BNP, mildly elevated creatinine, mild hypomagnesemia, mild hypocalcemia. Magnesium and calcium replaced p.o. Imaging notable for probable mild pulmonary edema. Given patient's history, symptoms and laboratory analysis patient mildly fluid overloaded. Started on Lasix in the emergency department. Discussed all findings with patient and offered admission to the hospital for continued evaluation, treatment and diuresis as well as electrolyte replacement and medication management. Patient states that he is absolutely not going to s [facility] in the hospital tonight and will take his medicine as prescribed and call Dr. Amadou Lee, his primary care physician for first thing Friday morning. Discussed with patient the risks of this including continue swelling, shortness of breath, chest pain, and the worst case scenario lightheadedness, syncope, fall, disability and/or . Patient states that he is a little swollen but otherwise feels well, wants to go home and talk to his primary care physician Friday. Gave strict return precautions to the ED. Patient grateful, verbalized understanding and agreed with plan of discharge. Dragon Disclaimer Dragon Disclaimer This electronic medical record was generated, in whole or in part, using a voice recognition dictation system. Departure Departure: Impression: Primary Impression: Bilateral lower extremity edema Additional Impressions: Pulmonary edema Elevated brain natriuretic peptide (BNP) level Hypomagnesemia Elevated serum creatinine Disposition: HOME / SELF CARE / HOMELESS Condition: IMPROVED Referrals: KELSY LEE MD (PCP) Patient Instructions: Edema, Hypomagnesemia, Pulmonary Edema Additional Instructions: Please read all of the attached information very carefully. Please take your water pills/diuretics as prescribed and discussed. As discussed please keep your sodium levels low in your diet as to not raise your blood pressure and retain more fluid. You were offered admission to the hospital for continued evaluation and treatment of your edema and electrolyte management but he stated that you would prefer to go home and talk to your primary care physician on Friday. We discussed the risks of this including continued retention of water in your legs and lungs, shortness of breath, chest pain, and in the worst case scenarios lightheadedness, fainting and falling, disability, severe illness and/or . Please be sure to call your primary care physician immediately Friday morning to discuss your ED visit and get in for a follow-up visit that day if possible to discuss your medication needs and repeat laboratory analysis. Please eat nutritious meals before then and take your vitamins as well. Scripts Furosemide (LASIX) 20 Mg Tablet 1 TAB PO DAILY for diuresis for 5 Days, #5 TAB 0 Refills Prov: GAVIN JOSEPH MD 01/13/21 Problem Qualifiers GAVIN JOSEPH MD Jan 13, 2021 03:02
--- NOTE | 2021-01-13 03:03 | RAD ---
Study: XR CHEST 1V Indication: Cardiac workup. Comparison: 12/18/2020 Findings: Similar configuration of the cardiomediastinal silhouette and jayy from the prior to include cephaliz ation of the central vasculature. Mildly increased interstitial markings but slightly less pronounced from the prior. No confluent infi ltrate, layering effusion or pneumothorax. Mild flattening of the diaphragm. Impression: Mild cephalization of the central vasculature could indicate a volume overload state. There are mildl y increased interstitial markings but manifestations of interstitial edema on the comparison are less noticeable on this exam. No layering effusion. Electronically signed by: DAVEY SOLIS MD (01/13/2021 3:00 AM) [facility]
[2021-01-13 03:28] VITALS: BP 175/78
[2021-01-13] MEDS ORDERED: FUROSEMIDE 40 MG/4 ML VIAL IVP ONE (03:30)
[2021-01-13] MEDS ORDERED: FURO-69 PO (03:39)
[2021-01-13] MEDS ORDERED: CALCIUM CARBONATE 500 MG TABLET PO ONE (04:00)
[2021-01-13] MEDS ORDERED: MAGNESIUM OXIDE 400 MG TABLET PO ONE (04:00)
== END 2021-01-13 03:58 | disposition home or self-care (01) ==
LOC: ER 01:47
DX: J81.1 Chronic pulmonary edema (principal); E83.42 Hypomagnesemia; R79.89 Other specified abnormal findings of blood chemistry; K21.9 Gastro-esophageal reflux disease without esophagitis; E11.9 Type 2 diabetes mellitus without complications; E78.00 Pure hypercholesterolemia, unspecified; J45.909 Unspecified asthma, uncomplicated; F17.210 Nicotine dependence, cigarettes, uncomplicated; Z86.79 Personal history of other diseases of the circulatory system; Z88.0 Allergy status to penicillin
CPT/HCPCS: 36415; 71045; 80053; 83735; 83880; 84484; 85025; 93005; 96374; 99285; J1940; Q0163

== ENCOUNTER 2021-01-14 21:03 | Observation (INO) | payer MEDICAID ==
[~2021-01-14] VITALS: Ht 186.7 cm; Wt 109.0 kg
[~2021-01-14 21:03] MED LIST changes: +FURO-69 PO
--- NOTE | 2021-01-14 22:03 | PHYS DOC ---
Past History Past Medical History: Asthma, CHF, Diabetes, GERD, High Cholesterol, Other Past Surgical History: Cholecystectomy, Other Smoking: Cigarettes, Greater than 1 pack/day Alcohol Use: None Drug Use: None General Adult EDM: Chief Complaint: LOWER EXTREMITY EDEMA HPI: HPI: 55-year-old male returns emergency room via EMS with continued bilateral lower extremity edema as well as left arm edema. The patient was seen in this facilit y by my colleague a couple days ago. He was placed on a "water pill". He tells me he has been taking them as prescribed. He denies having much urination. He feels like the swelling is worse. He has had an intermittent cough. He does not feel more short of breath than usual. He has COPD at baseline. Patient also complains of a persistent headache that he has had for couple weeks. He denies fever or chills. Denies trauma or falls. Review of Systems: Review of Systems: Constitutional: Denies fever or chills Eyes: Denies change in visual acuity HENT: Denies nasal congestion or sore throat Respiratory: Denies cough or shortness of breath Cardiovascular: Peripheral edema GI: Denies abdominal pain, nausea, vomiting, bloody stools or diarrhea : Denies dysuria Musculoskeletal: Denies back pain or joint pain Integument: Denies rash Neurologic: Denies headache, focal weakness or sensory changes Endocrine: Denies polyuria or polydipsia Lymphatic: Denies swollen glands Psychiatric: Denies depression or anxiety Allergies: Allergies: Allergies Coded Allergies Type Severity Reaction Last Updated Verified Penicillins Allergy Severe SWELLING 01/14/21 No Physical Exam: PE: Constitutional: Well developed, well nourished, no acute distress, non-toxic appearance. [] HENT: Normocephalic, atraumatic, bilateral external ears normal, oropharynx moist, no oral exudates, nose normal. [] Eyes: PERRLA, EOMI, conjunctiva normal, no discharge. [] Neck: Normal range of motion, no tenderness, supple, no stridor. [] Cardiovascular: Heart rate 86, regular rhythm, no murmur [] Lungs & Thorax: Bilateral breath sounds diminished [] Abdomen: Bowel sounds normal, soft, no tenderness, no masses, no pulsatile masses. [] Skin: Warm, dry, no erythema, no rash. [] Back: No tenderness, no CVA tenderness. [] Extremities: No tenderness, no cyanosis, no clubbing, ROM intact. 3+ pitting edema bilateral lower extremities right worse than left. 2+ pitting edema of the left upper extremity to the elbow. [] Neurologic: Alert and oriented X 3, normal motor function, normal sensory function, no focal deficits noted. [] Psychologic: Affect normal, judgement normal, mood normal. [] Current Patient Data: Vital Signs: Vital Signs Date Time Temp Pulse Resp B/P (MAP) Pulse Ox O2 Delivery O2 Flow Rate FiO2 01/14/21 21:03 98.3 52 20 171/78 (109) 96 Room Air EKG: EKG: [] Radiology/Procedures: Radiology/Procedures: [] Heart Score: C/O Chest Pain: No Risk Factors: Risk Factors: DM, Current or recent (<one month) smoker, HTN, HLP, family history of CAD, obesity. Risk Scores: Score 0 - 3: 2.5% MACE over next 6 weeks - Discharge Home Score 4 - 6: 20.3% MACE over next 6 weeks - Admit for Clinical Observation Score 7 - 10: 72.7% MACE over next 6 weeks - Early Invasive Strategies Course & Med Decision Making: Course & Med Decision Making Pertinent Labs and Imaging studies reviewed. (See chart for details) The patient's labs are suggestive of CHF. See official read for more details. His creatinine is 2.5. He did eventually spontaneously urinate. I will give him 40 mg of Lasix IV and will do a CT of the abdomen pelvis without contrast to rule out obvious obstructive pathology. I spoke with the hospitalist, Dr. Crawford and he has accepted the patient for admission and further treatment. [] Dragon Disclaimer: Dragon Disclaimer: This electronic medical record was generated, in whole or in part, using a voice recognition dictation system. Departure Departure: Impression: Primary Impression: CHF (congestive heart failure) Qualified Codes: I50.21 - Acute systolic (congestive) heart failure Additional Impression: Elevated serum creatinine Disposition: ADMITTED INPATIENT Admitting Physician: Eladio Crawford Condition: STABLE Referrals: KELSY LEE MD (PCP) DAQUAN GUTIÉRREZ DO Jan 14, 2021 22:03
[2021-01-14 22:29] LABS: BASO # 0.2 x10^3/uL (0.0-0.2); BASO % 2 % (0-3); EOS # 0.4 x10^3/uL (0.0-0.7); EOS % 4 % (0-3); HEMATOCRIT 31.6 % (39.0-53.0); HEMOGLOBIN 10.4 g/dL (13.0-17.5); LYMPH # 1.4 x10^3/uL (1.0-4.8); LYMPH % 15 % (24-48); MEAN CORPUSCULAR HEMOGLOBIN 30 pg (25-35); MEAN CORPUSCULAR HGB CONC 33 g/dL (31-37); MEAN CORPUSCULAR VOLUME 90 fL (79-100); MONO # 0.9 x10^3/uL (0.0-1.1); MONO % 9 % (0-9); NEUT % 71 % (31-73); PLATELET COUNT 209 x10^3/uL (140-400); RED BLOOD COUNT 3.51 x10^6/uL (4.30-5.70); RED CELL DISTRIBUTION WIDTH 15.2 % (11.5-14.5); WHITE BLOOD COUNT 9.9 x10^3/uL (4.0-11.0)
[2021-01-14] MEDS ORDERED: ONDANSETRON PF 4 MG/2 ML VIAL. IVP ONE (22:30)
[2021-01-14] MEDS ORDERED: MORPHINE SULFATE 2 MG/ML DISP.SYRIN. IV ONE (22:30)
[2021-01-14 22:33] LABS: CREATININE 2.5 mg/dL (0.7-1.3); GFR 26.9; POTASSIUM 5.4 mmol/L (3.5-5.1)
[2021-01-14 22:45] LABS: ALBUMIN 1.8 g/dL (3.4-5.0); ALBUMIN/GLOBULIN RATIO 0.5 (1.0-1.7); TOTAL BILIRUBIN 0.1 mg/dL (0.2-1.0); TOTAL PROTEIN 5.1 g/dL (6.4-8.2)
[2021-01-15] MEDS ORDERED: FUROSEMIDE 40 MG/4 ML VIAL IVP ONE (01:00)
[2021-01-15 01:02] LABS: BILIRUBIN,URINE NEG (NEG); CLARITY,URINE CLEAR; COLOR,URINE YELLOW; GLUCOSE,URINE 250 mg/dL (NEG); NITRITE,URINE NEG (NEG); RBC,URINE OCC /HPF (0-2); UROBILINOGEN,URINE 0.2 mg/dL (0.2 mg/dL)
[2021-01-15 01:03] LABS: BACTERIA,URINE 0 /HPF (0-FEW); SQUAMOUS EPITHELIAL CELL,UR FEW /LPF
[2021-01-15] MEDS ORDERED: ONDANSETRON PF 4 MG/2 ML VIAL. IVP PRN (01:30)
--- NOTE | 2021-01-15 01:32 | EKG ---
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
--- NOTE | 2021-01-15 01:45 | RAD ---
CT abdomen pelvis without contrast dated 01/15/2021. Comparison made to 04/09/2019. CLINICAL INDICATION: Pain. Rule out urinary obstruction. TECHNIQUE: Continues axial imaging the M pelvis performed without the administration of IV or oral contrast. One or more of the following individualized dose reduction techniques were utilized for this examinat ion: 1. Automated exposure control 2. Adjustment of the mA and/or kV according to patient size 3. Use of iterative reconstruction technique. FINDINGS: Images of lung bases show small bilateral pleural effusions, right greater than left. Linear bands of increased density in the lower lobes, lingula and right middle lobe, likely scar or atelectasis. Hea rt size is within normal limits. No pericardial effusion. Solid abdominal viscera not well evaluated in the absence of contrast material. No apparent attenuati on abnormality of the liver or spleen. Pancreas, adrenal glands unremarkable. The gallbladder is surg ically absent. Tiny low-density nodule at the right adrenal gland is unchanged from prior exam and li elizabeth represents a small adenoma. Kidneys are symmetric in size and attenuation. No calcific renal or ureteral stone. No hydronephrosis . Small nodular focus at the medial midpole right kidney is indeterminate but unchanged. Unopacified GI tract normal in caliber and contour. No focal bowel wall thickening. No inflammatory s tranding in the mesentery. The appendix is normal in caliber. No ascites or lymphadenopathy. There ar e scattered diverticula within the distal colon. Images of pelvis show nondistended urinary bladder. Prostate gland normal in size. No free fluid. Sma ll bilateral inguinal hernia containing only fat. There is generalized anasarca. Bone windows show no acute findings. Mild multilevel spondylosis. IMPRESSION: 1. No acute abnormality of abdomen or pelvis. No evidence of renal stone or hydronephrosis. 2. Diverticulosis with no evidence of acute diverticulitis. 3. Small bilateral pleural effusions, right greater than left. 4. Generalized anasarca. 5. Indeterminate small nodule at the medial mid to lower pole right kidney, indeterminate but unchang ed. Electronically signed by: Mekhi Teran MD (01/15/2021 1:43 AM) [facility]
[2021-01-15 02:10] VITALS: BP 160/77
[2021-01-15] MEDS ORDERED: ACETAMINOPHEN 325 MG TABLET PO PRN (02:45)
--- NOTE | 2021-01-15 02:48 | RAD ---
Single view chest dated 01/14/2021. Comparison made to 01/13/2021. CLINICAL INDICATION: Edema. FINDINGS: Single upright portable exam performed. Heart and mediastinal contours are stable. There is some patc hy perihilar opacity with prominent linear markings, similar to prior study. No new infiltrate or ple ural effusion. No pneumothorax. IMPRESSION: Mild perihilar airspace disease, not significantly changed from prior exam. Electronically signed by: Mekhi Teran MD (01/15/2021 2:46 AM) TAYE
--- NOTE | 2021-01-15 03:00 | NUR ---
Admission: The patient, NUNU HARMON, 55 y/o, M admitted by JULIEN NAVARRO MD, was given written information regarding hospital policies, unit procedures and contact persons. Pt arrived to room 115 via gurney, accompanied by [facility] and nursing sup. Pt amb with cane from gurney to bed, steady gait noted. Pt A/Ox4, mildly QUINAULT. Pt reports recent swelling to BLE and LUE as well as approx. 30# weight gain over the past two weeks and was seen in the the ED Friday. Pt was prescribed lasix and lisinopril, but reports little to no improvement in symptoms. Pt denies prior hx of CHF. Unsure of home meds, will need to [facility] in AM. Pt lives at home with his 30y/o son Memo. Discussed POC and oriented to room, pt V/U. H20 and snack provided per request. Call light in reach. Valuables were checked and logged. Left in room with pt.
[2021-01-15] MEDS ORDERED: GABA800T5 PO (04:56)
[2021-01-15] MEDS ORDERED: PANT40TA6 PO (04:56)
[2021-01-15] MEDS ORDERED: OXYC15TA60 PO (04:56)
[2021-01-15] MEDS ORDERED: [UNRECOGNIZED DRUG - CODE] PO (04:56)
[2021-01-15] MEDS ORDERED: DICL100G28 TP (04:56)
[2021-01-15] MEDS ORDERED: LISI10TA16 PO (04:56)
[2021-01-15] MEDS ORDERED: FLUT12AE INH (04:56)
[2021-01-15] MEDS ORDERED: RIZA10TA91 PO (04:56)
[2021-01-15] MEDS ORDERED: CIME400T PO (04:56)
[2021-01-15] MEDS ORDERED: FURO20TA3 PO (04:56)
[2021-01-15] MEDS ORDERED: BUPR150T11 PO (04:56)
[2021-01-15 05:04] VITALS: BP 144/84
[2021-01-15] MEDS ORDERED: oxyCODONE/APAP 7.5/325 1 TAB TABLET PO PRN (05:15)
[2021-01-15] MEDS ORDERED: SUMAtriptan SUCCINATE 50 MG TABLET PO PRN ×2 (05:15)
--- NOTE | 2021-01-15 07:20 | EKG ---
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
[2021-01-15 07:59] LABS: BASO # 0.1 x10^3/uL (0.0-0.2); BASO % 1 % (0-3); EOS # 0.4 x10^3/uL (0.0-0.7); EOS % 4 % (0-3); HEMATOCRIT 31.3 % (39.0-53.0); HEMOGLOBIN 10.1 g/dL (13.0-17.5); LYMPH # 1.7 x10^3/uL (1.0-4.8); LYMPH % 17 % (24-48); MEAN CORPUSCULAR HEMOGLOBIN 29 pg (25-35); MEAN CORPUSCULAR HGB CONC 32 g/dL (31-37); MEAN CORPUSCULAR VOLUME 90 fL (79-100); MONO # 0.9 x10^3/uL (0.0-1.1); MONO % 10 % (0-9); NEUT # 6.7 x10^3uL (1.8-7.7); NEUT % 69 % (31-73); PLATELET COUNT 188 x10^3/uL (140-400); RED BLOOD COUNT 3.46 x10^6/uL (4.30-5.70); RED CELL DISTRIBUTION WIDTH 15.7 % (11.5-14.5); WHITE BLOOD COUNT 9.8 x10^3/uL (4.0-11.0)
[2021-01-15 08:23] LABS: ALBUMIN 1.8 g/dL (3.4-5.0); ALBUMIN/GLOBULIN RATIO 0.5 (1.0-1.7); CALCIUM 8.1 mg/dL (8.5-10.1); CREATININE 2.5 mg/dL (0.7-1.3); GFR 26.9; POTASSIUM 4.9 mmol/L (3.5-5.1); TOTAL BILIRUBIN 0.2 mg/dL (0.2-1.0); TOTAL PROTEIN 5.2 g/dL (6.4-8.2)
[2021-01-15] MEDS ORDERED: oxyCODONE ER 15 MG TAB.ER.12H PO SCH (09:00)
[2021-01-15] MEDS ORDERED: DEXTROSE 50% 25 GM / 50ML DISP.SYRIN. IV PRN (10:15)
[2021-01-15] MEDS ORDERED: DICLOFENAC SODIUM 1% TOPICAL GEL 100GM TUBE. TP PRN (10:30)
[2021-01-15] MEDS ORDERED: ALBUTEROL SULFATE 2.5 MG/3 ML NEBU. IH PRN (10:30)
--- NOTE | 2021-01-15 11:17 | NUR ---
Nurse Note During rounds Dr. aguilar went to see pt and proceeded to ask pt question on what brought him to the hospital. Pt got increasingly frustrated and told that he " just wanted to go home today " Dr aguilar told the pt that he was free to leave AMA if desired and that he was not holding pt here against their will. Pt got increasingly frustrated and state" i feel uncomfortable in the hospital" Dr. aguilar then asked the pt " if it was something we did " Pt then stated in an elevated voice" No i just feel uncomfortable, I feel that if i stay in the hospital that i will have a stroke" Dr. aguilar Proceeded to ask that pt . " why do you feel this way is there anything we can do to make you feel more comfortable?" Pt then in an elevated voice started saying" you just don't understand , Haven't you ever felt some way and not know why you feel that way," and" some day someone is going to pressure you into doing something you don't want to do and your not going to like it " Dr. aguilar then reiterated that the pt is free to make his own decisions and can leave against medical advice if he so wished or he could stay and we would treat him. Pt the continued to elevate voice and told dr aguilar" just leave and if i decide to leave i will leave ". Dr. aguilar then left the room per pt request.
[2021-01-15] MEDS ORDERED: METOCLOPRAMIDE 10 MG TABLET PO SCH (11:30)
[2021-01-15] MEDS ORDERED: INSULIN LISPRO 300 UNITS/3 ML VIAL. SQ SCH (12:00)
--- NOTE | 2021-01-15 12:28 | NUR ---
NURSING NOTE THIS NURSE SAW PT WALKING DOWN HALLWAY TOWARDS EXIT. THIS NURSE ASKED TO ASSIST PT. PT STATES "IF YOU FUCKING TOUCH ME IM GOING TO HIT YOU WITH MY CANE AND ISIAH YOUR FUCKING ASS". PT HAS IV PLACED IN HIS HAND. PT YELLING AND RESISTIVE. THIS NURSE CALLED SECURITY AND NURSING PLASTIC SHAPER TO ASSIST WITH SITUATION. PT CONTINUING TO WALK ACROSS PARKING LOT, WOULD NOT LET THIS NURSE ASSIST TO REMOVE IV. PT REFUSED TO SIGN AMA. JASON BOX.
--- NOTE | 2021-01-15 12:35 | NUR ---
NURSING NOTE AMA PT LEFT AMA REFUSING TO SIGN AMA FORM. SECURITY AND NURSING BUSINESS DEVELOPMENT AWARE. PT REFUSING TO ALLOW ASSISTANCE WITH IV REMOVAL. PT THREATENING STAFF. JASON BOX.
--- NOTE | 2021-01-15 13:18 | NUR ---
NURSING NOTE FAMILY MEMBER DEZ, PT SISTER, CALLED AND STATED THAT PT IS RESISTIVE AT HOME, SHE USED TO TAKE CARE OF HIM BUT HE WOULD NOT ALLOW HER TO HELP IN THE PAST, CAN BE RESISTIVE AND COMBATIVE. THIS IS NOTHING NEW, ALSO APOLOGIZED FOR PT BEHAVIOR. PT SISTER STATES THAT MR HARMON TAKES CARE OF HIS SON WITH CEREBRAL PALSY AND PT WALKED INTO THE HOUSE WITH BLOOD ON HIS HANDS, MOST LIKELY FROM REMOVING HIS OWN IV AFTER RESISTING STAFF TO ASSIST. JASON BOX.
[2021-01-15] MEDS ORDERED: GABAPENTIN PO SCH (14:00)
[2021-01-15] MEDS ORDERED: GEMFIBROZIL 600 MG TABLET. PO SCH (16:30)
[2021-01-15] MEDS ORDERED: BUDESONIDE 0.5 MG/2 ML NEBU NEB SCH (20:00)
[2021-01-15] MEDS ORDERED: NON FORMULARY ITEM (Fluticasone Propionate (Flovent 110MCG Hfa) 1 PUFF) INH SCH (21:00)
[2021-01-15] MEDS ORDERED: buPROPion SR 150 MG TABLET.SA PO SCH (21:00)
[2021-01-16] MEDS ORDERED: PANTOPRAZOLE 40 MG TABLET. PO SCH (07:30)
[2021-01-16] MEDS ORDERED: LISINOPRIL 10 MG TABLET PO SCH (09:00)
== END 2021-01-15 12:30 | disposition left against medical advice (07) ==
LOC: ER 21:03 → 1 SOUTH 01-15 01:25 → INTOOBSV 01-15 01:25
PROVIDERS: ADMIT Internal Medicine; ATTEND Internal Medicine
DX: I11.0 Hypertensive heart disease with heart failure (principal); I50.21 Acute systolic (congestive) heart failure; J44.9 Chronic obstructive pulmonary disease, unspecified; E11.9 Type 2 diabetes mellitus without complications; E78.00 Pure hypercholesterolemia, unspecified; K21.9 Gastro-esophageal reflux disease without esophagitis; R79.89 Other specified abnormal findings of blood chemistry; F17.210 Nicotine dependence, cigarettes, uncomplicated; Z90.49 Acquired absence of other specified parts of digestive tract; Z98.890 Other specified postprocedural states; Z79.899 Other long term (current) drug therapy
CPT/HCPCS: 36415; 71045; 74176; 80053; 81001; 82947; 83880; 84484; 85025; 93005; 96374; 96375; 96376; 99285; G0378; J1815; J1940; J2270; J2405; G0379

== ENCOUNTER 2021-02-22 21:23 | Emergency (ER) | payer MEDICAID ==
[~2021-02-22] VITALS: Ht 186.7 cm; Wt 109.0 kg
[~2021-02-22 21:23] MED LIST changes: +BUPR150T11 PO; +CIME400T PO; +DICL100G28 TP; +FLUT12AE INH; +FURO20TA3 PO; +GABA800T5 PO; +LISI10TA16 PO; +OXYC15TA60 PO; +OXYC1TAB17 PO; +PANT40TA6 PO; +RIZA10TA91 PO
--- NOTE | 2021-02-22 21:37 | PHYS DOC ---
Past History Past Medical History: Asthma, CHF, Diabetes, GERD, High Cholesterol, Other Past Surgical History: Cholecystectomy, Other Smoking: Cigarettes, Greater than 1 pack/day Alcohol Use: None Drug Use: None General Adult EDM: Chief Complaint: SHORTNESS OF BREATH HPI: HPI: "..I really short of breath..can't breath..I need some pain meds.. I got chest pain... Feels like it had some fevers... Coughing up discolored sputum..".. " I ve been sick the last two days..." Patient is a 55 year old male who presents with above hx and complaints of fever, productive cough that is discolored, increased shortness of breath, and general malaise. Patient has known history of asthma, COPD, diabetes, GERD, elevated cholesterol, and up to 2 packs of cigarettes a day. Patient has more than [id number] smoking history. Patient has continued to smoke this morning. Patient denies any specific ill contacts. No recent travel. Patient states his glucose is normally in the 200 range. Patient only follows with Dr. Vu. Patient denies any history immunosuppression.. Review of Systems: Review of Systems: Constitutional: Complains of fever or chills Eyes: Denies change in visual acuity HENT: Complains of nasal congestion Respiratory: Complains of cough and shortness of breath Cardiovascular: Complains of chest pain GI: Denies abdominal pain, nausea, vomiting, bloody stools or diarrhea : Denies dysuria Musculoskeletal: Denies back pain or joint pain Integument: Denies rash Neurologic: Denies headache, focal weakness or sensory changes Endocrine: Complaints of elevated glucose levels Lymphatic: Denies swollen glands Psychiatric: Denies depression or anxiety Family History: Family History: Noncontributory to presentation Current Medications: Current Meds: See nursing for home meds Allergies: Allergies: Allergies Coded Allergies Type Severity Reaction Last Updated Verified Penicillins Allergy Severe SWELLING 01/14/21 No Physical Exam: PE: Constitutional: Reports moderate acute distress, non-toxic appearance. [] HENT: Normocephalic, atraumatic, bilateral external ears normal, oropharynx moist, no oral exudates, nose complains of nasal congestion Eyes: PERRLA, EOMI, conjunctiva normal, no discharge. [] Neck: Normal range of motion, no tenderness, supple, no stridor. [] Cardiovascular: Tachycardia heart rate regular rhythm, no murmur, PMI to left. Monitor shows a sinus rhythm with occasional premature atrial contraction. Lungs & Thorax: Bilateral breath sounds equal apex with wheezing throughout on auscultation [] Abdomen: Bowel sounds decreased, soft, no tenderness, no masses, no pulsatile masses. Large horizontal scar right upper quadrant from previous cholecystectomy Skin: Warm, dry, no erythema, no rash. Poor turgor Back: No tenderness, no CVA tenderness. [] Extremities: No tenderness, no cyanosis, no clubbing, ROM intact, no edema. No cording appreciated Neurologic: Alert and oriented X 3, moves all extremities on request, has distal sensory,, no focal deficits noted. [] Psychologic: Affect argumentative, demanding, judgement normal, mood normal. [] EKG: EKG: My interpretation EKG shows a sinus rhythm at 99 bpm with occasional PACs. No findings acute STEMI of contralateral changes. [] Radiology/Procedures: Radiology/Procedures: [][place] [address] IMAGING REPORT Signed PATIENT: NUNU HARMON ACCOUNT: [id number] : 1965 LOCATION: ER AGE: 55 SEX: M EXAM STATUS: REG ER ORD. PHYSICIAN: RADHA REARDON MD REASON: DYSPNEA. HX COPD, CHF PROCEDURE: PORTABLE CHEST 1V EXAM: CHEST 1 VIEW History: Dyspnea COMPARISON: 01/14/2021 TECHNIQUE: Single portable radiograph of the chest FINDINGS: The cardiac silhouette is unremarkable. Minimal bibasilar lung atelectasis or infiltrates. The costophrenic sulci are clear and well demarcated. IMPRESSION: Minimal bibasilar lung atelectasis or infiltrates. Electronically signed by: Andi Ospina MD (02/22/2021 10:58 PM) [id number] DICTATED AND SIGNED BY: ANDI OSPINA MD DATE: 02/22/21 2257 CC: KELSY VU MD; RADHA REARDON MD ~MTH0 0 Heart Score: C/O Chest Pain: Yes HEART Score for Chest Pain: HEART Score for Chest Pain Response (Comments) Value History Slighlty/Non-Suspicious 0 ECG Normal 0 Age >45 - < 65 1 Risk Factors 1 or 2 Risk Factors 1 Troponin < Normal Limit 0 Total 2 Risk Factors: Risk Factors: DM, Current or recent (<one month) smoker, HTN, HLP, family history of CAD, obesity. Risk Scores: Score 0 - 3: 2.5% MACE over next 6 weeks - Discharge Home Score 4 - 6: 20.3% MACE over next 6 weeks - Admit for Clinical Observation Score 7 - 10: 72.7% MACE over next 6 weeks - Early Invasive Strategies Course & Med Decision Making: Course & Med Decision Making Pertinent Labs and Imaging studies reviewed. (See chart for details) Patient received Solu-Medrol, breathing treatments, Zithromax, and receive Eliquis. Patient had minimal changes on x-ray so a V/Q was ordered because of possible pulmonary embolism. After theTech arrived for VQ scan. The r patient refused and left without completing his work-up. Patient was discharged with a prescription for Zithromax. To take Eliquis 5 mg twice a day. Follow-up primary care. If he elected to get the VQ follow-up primary care. Patient encouraged to quit smoking. Patient advised to return anytime if he wished to complete his evaluation. Impression: 1. COPD exacerbation 2. Mild leukocytosis 12.3 3. Renal insufficiency BUN 29 creatinine 2.3 4. Diabetes glucose 217 5. Tobaccoism 6. Bronchiectasis [] Dragon Disclaimer: Dragon Disclaimer: This electronic medical record was generated, in whole or in part, using a voice recognition dictation system. Departure Departure: Referrals: KELSY VU MD (PCP) Scripts Apixaban (ELIQUIS) 5 Mg Tablet 5 MG PO BID for r/o dvt, pe for 7 Days, #14 TAB Prov: RADHA REARDON MD 02/23/21 Azithromycin (ZITHROMAX) 250 Mg Tablet 250 MG PO DAILY for ANTI-BIOTIC for 5 Days, #5 TAB 0 Refills Prov: RADHA REARDON MD 02/23/21 Prednisone (PREDNISONE) 50 Mg Tablet 50 MG PO DAILY PRN for daily for 5 Days, #5 TAB Prov: RADHA REARDON MD 02/23/21 Geovanna Disclaimer This chart was dictated in whole or in part using Voice Recognition software in a busy, high-work load, and often noisy Emergency Department environment. It may contain unintended and wholly unrecognized errors or omissions. RADHA REARDON MD Feb 22, 2021 21:37
[2021-02-22] MEDS: IPRATRPIUM/ALBUTEROL 0.5/2.5MG 3 ML NEBU. NEB ONE (21:45)
[2021-02-22] MEDS: methylPREDNISolone SOD SUCC PF 125 MG/2 ML VIAL. IV ONE (21:45)
[2021-02-22] MEDS ORDERED: IPRATRPIUM/ALBUTEROL 0.5/2.5MG 3 ML NEBU. NEB ONE (21:45)
[2021-02-22 22:27] LABS: BASO # 0.2 x10^3/uL (0.0-0.2); BASO % 2 % (0-3); EOS # 0.1 x10^3/uL (0.0-0.7); EOS % 1 % (0-3); HEMATOCRIT 41.5 % (39.0-53.0); HEMOGLOBIN 13.6 g/dL (13.0-17.5); LYMPH % 8 % (24-48); MEAN CORPUSCULAR HEMOGLOBIN 30 pg (25-35); MEAN CORPUSCULAR HGB CONC 33 g/dL (31-37); MEAN CORPUSCULAR VOLUME 91 fL (79-100); MONO # 0.7 x10^3/uL (0.0-1.1); MONO % 6 % (0-9); NEUT # 10.3 x10^3uL (1.8-7.7); NEUT % 83 % (31-73); PLATELET COUNT 294 x10^3/uL (140-400); RED BLOOD COUNT 4.54 x10^6/uL (4.30-5.70); WHITE BLOOD COUNT 12.3 x10^3/uL (4.0-11.0)
[2021-02-22 22:38] LABS: CALCIUM 8.7 mg/dL (8.5-10.1); CREATININE 2.3 mg/dL (0.7-1.3); GFR 29.7; POTASSIUM 4.8 mmol/L (3.5-5.1)
[2021-02-22] MEDS: AZITHROMYCIN 250 MG TABLET. PO ONE (22:45)
[2021-02-22] MEDS: IV RINGERS SOLUTION,LACTATED 1,000 ML IV SCH (22:48)
[2021-02-22 22:49] LABS: DIRECT BILIRUBIN 0.1 mg/dL (0.0-0.2); MAGNESIUM 1.5 mg/dL (1.8-2.4); TOTAL BILIRUBIN 0.3 mg/dL (0.2-1.0); TOTAL PROTEIN 6.2 g/dL (6.4-8.2)
--- NOTE | 2021-02-22 22:54 | EKG ---
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
--- NOTE | 2021-02-22 23:01 | RAD ---
EXAM: CHEST 1 VIEW History: Dyspnea COMPARISON: 01/14/2021 TECHNIQUE: Single portable radiograph of the chest FINDINGS: The cardiac silhouette is unremarkable. Minimal bibasilar lung atelectasis or infiltrates. The costophrenic sulci are clear and well demarcated. IMPRESSION: Minimal bibasilar lung atelectasis or infiltrates. Electronically signed by: Andi Ospina MD (02/22/2021 10:58 PM) [id number]
[2021-02-22 23:30] VITALS: BP 167/85
[2021-02-22] MEDS ORDERED: APIXABAN 5 MG TABLET. PO ONE (23:30)
[2021-02-23] MEDS ORDERED: APIX5TAB3 PO (00:04)
[2021-02-23] MEDS ORDERED: PRED50TA PO (00:04)
[2021-02-23] MEDS ORDERED: AZIT250T PO (00:04)
[2021-02-23] MEDS ORDERED: NITROGLYCERIN OINT 1 GM PACKET. ONE (03:22)
== END 2021-02-23 00:40 | disposition home or self-care (01) ==
LOC: ER 21:23
DX: J44.1 Chronic obstructive pulmonary disease with (acute) exacerbation (principal); D72.829 Elevated white blood cell count, unspecified; N28.9 Disorder of kidney and ureter, unspecified; F17.210 Nicotine dependence, cigarettes, uncomplicated; E11.9 Type 2 diabetes mellitus without complications; K21.9 Gastro-esophageal reflux disease without esophagitis; Z90.49 Acquired absence of other specified parts of digestive tract; Z88.0 Allergy status to penicillin
CPT/HCPCS: 36415; 71045; 80048; 80076; 82550; 82947; 83690; 83735; 83880; 84443; 84484; 85025; 87040; 87205; 93005; 94640; 96361; 96374; 99285; J2930; J7120

== ENCOUNTER 2021-02-23 02:15 | Observation (INO) | payer MEDICAID ==
[~2021-02-23] VITALS: Ht 185.4 cm; Wt 88.3 kg
[~2021-02-23 02:15] MED LIST changes: +APIX5TAB3 PO; +AZIT250T PO; +PRED50TA PO
--- NOTE | 2021-02-23 02:22 | PHYS DOC ---
Past History Past Medical History: Anxiety, Asthma, CHF, COPD, Diabetes, GERD, High Cholesterol, Other Past Surgical History: Cholecystectomy, Other Smoking: Cigarettes, Greater than 1 pack/day Alcohol Use: None Drug Use: None General Adult HPI: HPI: ".. I was here earlier.. I left.. I am back.. still short of breath.. .. chest discomfort.. " Patient is a 55 year old male who presents with above hx and complailnts of dyspnea, cough, chest discomfort, anxiety. Pt left prior visit after refusing V/Q scan. Pt. does continue to smoke approximately 2 packs a day. Pt. hx asthma, COPD, diabetes, GERD, elevated cholesterol, and noncompliance with medical regimens. Patient currently follows with Dr. Amadou Contreras. See earlier ED record Review of Systems: Review of Systems: Constitutional: Denies fever or chills Eyes: Denies change in visual acuity HENT: Denies nasal congestion or sore throat Respiratory: Complains of cough and dyspnea Cardiovascular: Complains of chest pain GI: Denies abdominal pain, nausea, vomiting, bloody stools or diarrhea : Denies dysuria Musculoskeletal: Denies back pain or joint pain Integument: Denies rash Neurologic: Denies headache, focal weakness or sensory changes Endocrine: Denies polyuria or polydipsia Lymphatic: Denies swollen glands Psychiatric: Complains of anxiety Family History: Family History: Noncontributory presentation Current Medications: Current Meds: See nursing for home meds Allergies: Allergies: Allergies Coded Allergies Type Severity Reaction Last Updated Verified Penicillins Allergy Severe SWELLING 01/14/21 No Physical Exam: PE: Constitutional: no acute distress, non-toxic appearance. [] HENT: Normocephalic, atraumatic, bilateral external ears normal, oropharynx moist, postnasal drainage, no oral exudates, nose: Turbinates clear rhinorrhea. Poor dentition Eyes: PERRLA, EOMI, conjunctiva normal, no discharge. [] Neck: Normal range of motion, no tenderness, supple, no stridor. [] Cardiovascular:Heart rate regular rhythm, no murmur []. PMI to left. Monitor s hows a sinus tachycardia. Does have occasional PAC. Lungs & Thorax: Bilateral breath sounds equal apex with wheezes throughout on auscultation [] Abdomen: Bowel sounds decreased, soft, no tenderness, no masses, no pulsatile masses. Large diagonal scar right upper quadrant-(complication gallbladder) Skin: Warm, dry, no erythema, no rash. Poor turgor Back: No tenderness, no CVA tenderness. [] Extremities: No tenderness, no cyanosis, no clubbing, ROM intact, no edema. Arthritic changes. Nicotine stained fingers. No cording appreciated Neurologic: Alert and oriented X 3, moves all extremities on request, distal sensory , no focal deficits noted. [] Psychologic: Affect anxious, judgement normal, mood normal. Argumentative, demanding and uncooperative with his treatment plan EKG: EKG: My interpretation EKG shows a sinus rhythm at 89 bpm. Occasional PAC. No acute interval change from EKG of 2136 hrs. [] Radiology/Procedures: Radiology/Procedures: Reviewed prior chest x-ray from visit earlier Heart Score: C/O Chest Pain: Yes HEART Score for Chest Pain: HEART Score for Chest Pain Response (Comments) Value History Moderately Suspicious 1 ECG Nonspecific Repolarizatio 1 Age >45 - < 65 1 Risk Factors 1 or 2 Risk Factors 1 Troponin < Normal Limit 0 Total 4 Risk Factors: Risk Factors: DM, Current or recent (<one month) smoker, HTN, HLP, family history of CAD, obesity. Risk Scores: Score 0 - 3: 2.5% MACE over next 6 weeks - Discharge Home Score 4 - 6: 20.3% MACE over next 6 weeks - Admit for Clinical Observation Score 7 - 10: 72.7% MACE over next 6 weeks - Early Invasive Strategies Course & Med Decision Making: Course & Med Decision Making Pertinent Labs and Imaging studies reviewed. (See chart for details) Discussed presentation, testing and treatment plan with - admit to his service with Cardiology consult. Patient refused NicoDerm or nicotine patch. Impression: 1. Chest pain 2.. COPD exacerbation 3. Continued tobacco use-excessive 50 pack years 4. Mild leukocytosis 12.3 5. Renal insufficiency BUN 29 and creatinine 2.3 6. Diabetes glucose 217 7. Anxiety [] Dragon Disclaimer: Geovanna Disclaimer: This electronic medical record was generated, in whole or in part, using a voice recognition dictation system. Departure Departure: Referrals: KELSY LEE MD (PCP) Geovanna Disclaimer This chart was dictated in whole or in part using Voice Recognition software in a busy, high-work load, and often noisy Emergency Department environment. It may contain unintended and wholly unrecognized errors or omissions. RADHA REARDON MD Feb 23, 2021 02:22
[2021-02-23] MEDS ORDERED: ONDANSETRON PF 4 MG/2 ML VIAL. IVP PRN (02:45)
[2021-02-23] MEDS ORDERED: ACETAMINOPHEN 325 MG TABLET PO PRN (02:45)
[2021-02-23] MEDS ORDERED: ASPIRIN CHEWABLE 81 MG TABLET. PO ONE (03:00)
[2021-02-23] MEDS ORDERED: AZITHROMYCIN 250 MG TABLET. PO SCH ×2 (03:00→09:00)
[2021-02-23] MEDS ORDERED: ANTI-COAG MONITOR BY PHARMACY. MC PRN (03:00)
[2021-02-23] MEDS ORDERED: NITROGLYCERIN OINT 1 GM PACKET. TP SCH (03:00)
[2021-02-23 04:11] VITALS: BP 113/88
--- NOTE | 2021-02-23 04:13 | EKG ---
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
[2021-02-23] MEDS ORDERED: IPRATRPIUM/ALBUTEROL 0.5/2.5MG 3 ML NEBU. NEB SCH (08:00)
[2021-02-23] MEDS ORDERED: APIXABAN 5 MG TABLET. PO SCH (09:00)
[2021-02-23] MEDS ORDERED: LACTOBACILLUS RHAMNOSUS GG 1 CAPSULE. PO SCH (21:00)
== END 2021-02-23 09:05 | disposition left against medical advice (07) ==
LOC: ER 02:15 → 1 SOUTH 02:39 → INTOOBSV 02:39
PROVIDERS: ADMIT Internal Medicine; ATTEND Internal Medicine
DX: R07.89 Other chest pain (principal); J44.1 Chronic obstructive pulmonary disease with (acute) exacerbation; I11.0 Hypertensive heart disease with heart failure; I50.9 Heart failure, unspecified; D72.829 Elevated white blood cell count, unspecified; E11.9 Type 2 diabetes mellitus without complications; F41.9 Anxiety disorder, unspecified; E78.00 Pure hypercholesterolemia, unspecified; N28.9 Disorder of kidney and ureter, unspecified; F17.210 Nicotine dependence, cigarettes, uncomplicated; Z91.19 Patient's noncompliance with other medical treatment and regimen; Z90.49 Acquired absence of other specified parts of digestive tract; Z79.899 Other long term (current) drug therapy; Z98.890 Other specified postprocedural states
CPT/HCPCS: 36415; 84484; 93005; 94640; 96374; 99284; G0378; J2405; G0379; 99285-25

== ENCOUNTER 2021-02-23 11:27 | Emergency (ER) | payer MEDICAID ==
[~2021-02-23] VITALS: Ht 185.4 cm; Wt 88.3 kg
--- NOTE | 2021-02-23 11:48 | EKG ---
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
--- NOTE | 2021-02-23 11:51 | PHYS DOC ---
Past History Past Medical History: Anxiety, Asthma, CHF, COPD, Diabetes, GERD, High Cholesterol, Other Past Surgical History: Cholecystectomy, Other Smoking: Cigarettes, Greater than 1 pack/day Alcohol Use: None Drug Use: None General Adult EDM: Chief Complaint: CHEST PAIN HPI: HPI: 55-year-old male presents with chest pain. Patient tells me that is a dull ache in the center of his chest. It does not radiate. He tells me he has diabetes and thinks he has high blood pressure. He says he has been taking his medications, but does not know what they are. He has sticker bajwa on his chest and abdomen but does not come in with those came from. He denies vomiting, diarrhea, fever, chills. Review of Systems: Review of Systems: Constitutional: Denies fever or chills Eyes: Denies change in visual acuity HENT: Denies nasal congestion or sore throat Respiratory: Denies cough or shortness of breath Cardiovascular: Chest pain GI: Denies abdominal pain, nausea, vomiting, bloody stools or diarrhea : Denies dysuria Musculoskeletal: Denies back pain or joint pain Integument: Denies rash Neurologic: Denies headache, focal weakness or sensory changes Endocrine: Denies polyuria or polydipsia Lymphatic: Denies swollen glands Psychiatric: Denies depression or anxiety Allergies: Allergies: Allergies Coded Allergies Type Severity Reaction Last Updated Verified Penicillins Allergy Severe SWELLING 02/23/21 No Physical Exam: PE: Constitutional: Well developed, well nourished, no acute distress, non-toxic appearance. [] HENT: Normocephalic, atraumatic, bilateral external ears normal, oropharynx moist, no oral exudates, nose normal. [] Eyes: PERRLA, EOMI, conjunctiva normal, no discharge. [] Neck: Normal range of motion, no tenderness, supple, no stridor. [] Cardiovascular: Heart rate 88, regular rhythm, no murmur [] Lungs & Thorax: Bilateral breath sounds clear to auscultation [] Abdomen: Bowel sounds normal, soft, no tenderness, no masses, no pulsatile masses. [] Skin: Warm, dry, no erythema, no rash. [] Back: No tenderness, no CVA tenderness. [] Extremities: No tenderness, no cyanosis, no clubbing, ROM intact, no edema. [] Neurologic: Alert and oriented X 3, normal motor function, normal sensory function, no focal deficits noted. [] Psychologic: Affect normal, judgement normal, mood normal. [] EKG: EKG: Sinus rhythm, rate 88, normal axis, no ST elevation or depression, prominent T waves. [] Radiology/Procedures: Radiology/Procedures: [] Impressions: INDICATION: Reason: chest pain / Spl. Instructions: / History: COMPARISON: One day prior FINDINGS: Single view of chest obtained. Cardiac silhouette is similar prior. Mild linear opacity at the left lung base is again seen without any new regions of consolidation. IMPRESSION: * Similar appearance of the chest compared to prior with repeat demonstration of linear airspace opacity at the left lung base without a new region of consolidation. Electronically signed by: Nilo Wheat MD (02/23/2021 11:52 AM) [id number] DICTATED AND SIGNED BY: NILO WHEAT MD DATE: 02/23/21 1149 CC: DAQUAN GUTIÉRREZ DO; KELSY LEE MD ~MTH0 0 Heart Score: C/O Chest Pain: Yes HEART Score for Chest Pain: HEART Score for Chest Pain Response (Comments) Value History Slighlty/Non-Suspicious 0 ECG Normal 0 Age >45 - < 65 1 Risk Factors 1 or 2 Risk Factors 1 Troponin < Normal Limit 0 Total 2 Risk Factors: Risk Factors: DM, Current or recent (<one month) smoker, HTN, HLP, family history of CAD, obesity. Risk Scores: Score 0 - 3: 2.5% MACE over next 6 weeks - Discharge Home Score 4 - 6: 20.3% MACE over next 6 weeks - Admit for Clinical Observation Score 7 - 10: 72.7% MACE over next 6 weeks - Early Invasive Strategies Course & Med Decision Making: Course & Med Decision Making Pertinent Labs and Imaging studies reviewed. (See chart for details) The patient's EKG is unremarkable. His chest x-ray is negative for new findings. Troponin is negative. Patient's labs are significant for elevated glucose and elevated creatinine. These are similar to previous labs on the [facility]. The patient's anion gap is normal. I have ordered a liter of normal saline. The patient was recently discharged from the hospital. I do not see any new findings that would warrant readmission. He should follow-up closely with his primary care physician. He is stable for discharge at this time. [] Dragon Disclaimer: Dragon Disclaimer: This electronic medical record was generated, in whole or in part, using a voice recognition dictation system. Departure Departure: Impression: Primary Impression: Chest pain Qualified Codes: R07.9 - Chest pain, unspecified Additional Impression: Hyperglycemia Disposition: HOME / SELF CARE / HOMELESS Condition: STABLE Referrals: KELSY LEE MD (PCP) Patient Instructions: Chest Pain (Nonspecific), [id number] DAQUAN GUTIÉRREZ DO Feb 23, 2021 11:51
--- NOTE | 2021-02-23 11:55 | RAD ---
INDICATION: Reason: chest pain / Spl. Instructions: / History: COMPARISON: One day prior FINDINGS: Single view of chest obtained. Cardiac silhouette is similar prior. Mild linear opacity at the left lung base is again seen without any new regions of consolidation. IMPRESSION: * Similar appearance of the chest compared to prior with repeat demonstration of linear airspace [place] at the left lung base without a new region of consolidation. Electronically signed by: Lane Terry MD (02/23/2021 11:52 AM) [id number]
[2021-02-23 12:07] LABS: BASO % 0 % (0-3); EOS % 0 % (0-3); HEMATOCRIT 39.3 % (39.0-53.0); HEMOGLOBIN 12.9 g/dL (13.0-17.5); LYMPH # 1.2 x10^3/uL (1.0-4.8); LYMPH % 13 % (24-48); MEAN CORPUSCULAR HEMOGLOBIN 30 pg (25-35); MEAN CORPUSCULAR HGB CONC 33 g/dL (31-37); MEAN CORPUSCULAR VOLUME 91 fL (79-100); MONO # 0.7 x10^3/uL (0.0-1.1); MONO % 8 % (0-9); NEUT # 7.3 x10^3uL (1.8-7.7); NEUT % 79 % (31-73); PLATELET COUNT 290 x10^3/uL (140-400); RED BLOOD COUNT 4.33 x10^6/uL (4.30-5.70); RED CELL DISTRIBUTION WIDTH 15.8 % (11.5-14.5); WHITE BLOOD COUNT 9.2 x10^3/uL (4.0-11.0)
[2021-02-23] MEDS: MORPHINE SULFATE 4 MG/ML DISP.SYRIN. IV ONE (12:17)
[2021-02-23 12:21] LABS: CALCIUM 8.2 mg/dL (8.5-10.1); CREATININE 2.7 mg/dL (0.7-1.3); GFR 24.7
[2021-02-23 12:27] LABS: ALBUMIN/GLOBULIN RATIO 0.6 (1.0-1.7); TOTAL BILIRUBIN 0.2 mg/dL (0.2-1.0); TOTAL PROTEIN 5.1 g/dL (6.4-8.2)
[2021-02-23] MEDS: IV NORMAL SALINE 1,000ML 1,000 ML IV ONE (12:40)
[2021-02-23 13:40] VITALS: BP 119/79
== END 2021-02-23 13:48 | disposition home or self-care (01) ==
LOC: ER 11:27
DX: R07.89 Other chest pain (principal); E11.65 Type 2 diabetes mellitus with hyperglycemia; I11.0 Hypertensive heart disease with heart failure; I50.9 Heart failure, unspecified; K21.9 Gastro-esophageal reflux disease without esophagitis; F17.210 Nicotine dependence, cigarettes, uncomplicated; Z90.49 Acquired absence of other specified parts of digestive tract; Z88.0 Allergy status to penicillin
CPT/HCPCS: 36415; 71045; 80053; 84484; 85025; 93005; 96374; 99285; J2270; J7030

== ENCOUNTER 2021-02-23 14:31 | Emergency (ER) | payer MEDICAID ==
[~2021-02-23] VITALS: Ht 185.4 cm; Wt 88.3 kg
[2021-02-23] MEDS: ONDANSETRON ODT 4 MG TAB.RAPDIS PO ONE (14:50)
--- NOTE | 2021-02-23 14:56 | PHYS DOC ---
Past History Past Medical History: Anxiety, Asthma, CHF, COPD, Diabetes, GERD, High Cholesterol, Other Past Surgical History: Cholecystectomy, Other Smoking: Cigarettes, Greater than 1 pack/day Alcohol Use: None Drug Use: None General Adult EDM: Chief Complaint: NAUSEA/VOMITING/DIARRHEA HPI: HPI: The patient was just discharged from the emergency room. He told the front office associate that his ride was 40 minutes away so he was going to check back in. He states that his belly hurts and is feeling nauseous. Patient has gastroparesis at baseline. He has frequent nausea. Review of Systems: Review of Systems: Constitutional: Denies fever or chills Eyes: Denies change in visual acuity HENT: Denies nasal congestion or sore throat Respiratory: Denies cough or shortness of breath Cardiovascular: Denies chest pain or edema GI: Nausea, vomiting. : Denies dysuria Musculoskeletal: Denies back pain or joint pain Integument: Denies rash Neurologic: Denies headache, focal weakness or sensory changes Endocrine: Denies polyuria or polydipsia Lymphatic: Denies swollen glands Psychiatric: Denies depression or anxiety Current Medications: Current Meds: Current Medications Medications (Trade) Dose Ordered Sig/Marilou Start Time Stop Time Status Last Admin Dose Admin Ondansetron HCl (Zofran Odt) 4 mg 1X ONCE 02/23/21 14:45 02/23/21 14:46 DC 02/23/21 14:50 4 MG Allergies: Allergies: Allergies Coded Allergies Type Severity Reaction Last Updated Verified Penicillins Allergy Severe SWELLING 02/23/21 No Physical Exam: PE: Constitutional: Well developed, well nourished, no acute distress, non-toxic appearance. [] HENT: Normocephalic, atraumatic, bilateral external ears normal, oropharynx moist, no oral exudates, nose normal. [] Eyes: PERRLA, EOMI, conjunctiva normal, no discharge. [] Neck: Normal range of motion, no tenderness, supple, no stridor. [] Cardiovascular: Heart rate regular rhythm, no murmur [] Lungs & Thorax: Bilateral breath sounds clear to auscultation [] Abdomen: Bowel sounds normal, soft, no tenderness, no masses, no pulsatile masses. [] Skin: Warm, dry, no erythema, no rash. [] Back: No tenderness, no CVA tenderness. [] Extremities: No tenderness, no cyanosis, no clubbing, ROM intact, no edema. [] Neurologic: Alert and oriented X 3, normal motor function, normal sensory function, no focal deficits noted. [] Psychologic: Affect normal, judgement normal, mood normal. [] Current Patient Data: Vital Signs: Vital Signs Date Time Temp Pulse Resp B/P (MAP) Pulse Ox O2 Delivery O2 Flow Rate FiO2 02/23/21 14:43 98.1 96 16 146/75 (98) 97 Room Air EKG: EKG: [] Radiology/Procedures: Radiology/Procedures: [] Heart Score: C/O Chest Pain: N/A Risk Factors: Risk Factors: DM, Current or recent (<one month) smoker, HTN, HLP, family history of CAD, obesity. Risk Scores: Score 0 - 3: 2.5% MACE over next 6 weeks - Discharge Home Score 4 - 6: 20.3% MACE over next 6 weeks - Admit for Clinical Observation Score 7 - 10: 72.7% MACE over next 6 weeks - Early Invasive Strategies Course & Med Decision Making: Course & Med Decision Making Pertinent Labs and Imaging studies reviewed. (See chart for details) The patient has been given 4 mg of Zofran. He is stable for discharge at this time. [] Dragon Disclaimer: Dragon Disclaimer: This electronic medical record was generated, in whole or in part, using a voice recognition dictation system. Departure Departure: Impression: Primary Impression: Nausea and vomiting Disposition: HOME / SELF CARE / HOMELESS Condition: STABLE Referrals: KELSY LEE MD (PCP) DAQUAN GUTIÉRREZ DO Feb 23, 2021 14:56
[2021-02-23 15:34] VITALS: BP 139/68
== END 2021-02-23 15:36 | disposition left against medical advice (07) ==
LOC: ER 14:31
DX: R11.2 Nausea with vomiting, unspecified (principal); J44.9 Chronic obstructive pulmonary disease, unspecified; K21.9 Gastro-esophageal reflux disease without esophagitis; E78.5 Hyperlipidemia, unspecified; F17.210 Nicotine dependence, cigarettes, uncomplicated; Z90.49 Acquired absence of other specified parts of digestive tract
CPT/HCPCS: 99283; Q0162

== ENCOUNTER 2021-02-23 18:00 | Observation (INO) | payer MEDICAID ==
[~2021-02-23] VITALS: Ht 185.4 cm; Wt 86.8 kg
[2021-02-23] MEDS ORDERED: diazePAM 5 MG TABLET. PO ONE (18:15)
--- NOTE | 2021-02-23 18:23 | PHYS DOC ---
Past History Past Medical History: Anxiety, Asthma, CHF, COPD, Diabetes, GERD, High Cholesterol, Other (MAURILIO BENOIT APRN) Past Surgical History: Cholecystectomy, Other (MAURILIO BENOIT APRN) Smoking: Cigarettes, Greater than 1 pack/day Alcohol Use: None Drug Use: None (MAURILIO BENOIT APRN) General Adult EDM: Chief Complaint: ANXIETY/PANIC ATTACK HPI: HPI: Patient is a 55-year-old male presents with anxiety. Patient has been seen in the emergency room 3 times today for difference complaints. Patient is alert and oriented. Hemodynamically stable. Patient sees Dr. Vu. Patient states he has a history of anxiety and panic attacks. (MAURILIO BENOIT APRN) Review of Systems: Review of Systems: Constitutional: Denies fever or chills Eyes: Denies change in visual acuity HENT: Denies nasal congestion or sore throat Respiratory: Denies cough, reports shortness of breath Cardiovascular: Denies chest pain or edema GI: Denies abdominal pain, nausea, vomiting, bloody stools or diarrhea : Denies dysuria Musculoskeletal: Denies back pain or joint pain Integument: Denies rash Neurologic: Denies headache, focal weakness or sensory changes Endocrine: Denies polyuria or polydipsia Lymphatic: Denies swollen glands Psychiatric: Reports anxiety attack (MAURILIO BENOIT APRN) Allergies: Allergies: Allergies Coded Allergies Type Severity Reaction Last Updated Verified Penicillins Allergy Severe SWELLING 02/23/21 No (MAURILIO BENOIT APRN) Physical Exam: PE: Constitutional: Well developed, well nourished, no acute distress, non-toxic appearance. HENT: Normocephalic, atraumatic, bilateral external ears normal, oropharynx moist, no oral exudates, nose normal. Eyes: PERRLA, EOMI, conjunctiva normal, no discharge. Neck: Normal range of motion, no tenderness, supple, no stridor. Cardiovascular:Heart rate regular rhythm, no murmur Lungs & Thorax: Wheezing noted bilaterally on auscultation Abdomen: Bowel sounds normal, soft, no tenderness, no masses Skin: Warm, dry, no erythema, no rash. Back: No tenderness, no CVA tenderness. Extremities: No tenderness, no cyanosis, no clubbing, ROM intact, bilateral lower leg edema. Neurologic: Alert and oriented X 3, normal motor function, normal sensory function, no focal deficits noted. Psychologic: Anxious and agitated (MAURILIO BENOIT APRN) Current Patient Data: Vital Signs: Vital Signs Date Time Temp Pulse Resp B/P (MAP) Pulse Ox O2 Delivery O2 Flow Rate FiO2 02/23/21 18:00 97.9 83 16 136/72 (93) 97 Room Air (MAURILIO BENOIT APRN) EKG: EKG: [] (MAURILIO BENOIT APRN) Radiology/Procedures: Radiology/Procedures: []CTA CHEST_ABDOMEN_AND PELVIS Clinical Indication: Anxiety, chest pain, upper abdominal pain COMPARISON: CT abdomen pelvis 01/15/2021 TECHNIQUE: Multiple contiguous axial images were obtained throughout the chest, abdomen, and pelvis with the use of IV contrast. Axial images were reformatted into coronal and sagittal planes. MIP reconstructions were obtained. 100 mL Omnipaque 350 was administered. One or more of the following dose reduction techniques we re utilized: Automated exposure control (AEC), Adjustment of mA and/or kV according to patient size, Use of iterative reconstruction technique such as ASiR, CT scan done according to ALARA and image gently/image wisely. Findings: The thyroid is symmetric. There is no axillary, mediastinal, or hilar adenopathy. No evidence of pulmonary thromboembolic disease. The thoracic aorta diameter is normal. Cardiomegaly. Coronary artery atherosclerotic disease. There is no pericardial effusion. The central airways are patent. No pulmonary mass or consolidation. Dependent and subsegmental atelectasis. Small right pleural effusion. There is no pneumothorax. The liver, spleen, pancreas, and adrenal glands are unremarkable. Cholecystectomy. The kidneys are unremarkable. There is no significant mesenteric or retroperitoneal adenopathy identified. There is no evidence of free intraperitoneal fluid or pneumoperitoneum. Visualized portions of the bowel are grossly unremarkable. Mild aortoiliac atherosclerotic disease. A bladder is decompressed. There is no significant pelvic ascites. No significant iliac or inguinal adenopathy is identified. No acute osseous abnormality. Degenerative changes of the spine. IMPRESSION: 1. No evidence of pulmonary thromboembolic disease. No pulmonary mass or consolidation. 2. No acute intra-abdominal process. 3. Small right pleural effusion. 4. Coronary artery atherosclerotic disease. Electronically signed by: Colin Strickland MD (02/23/2021 8:04 PM) [facility] (MAURILIO BENOIT APRN) Heart Score: C/O Chest Pain: No Risk Factors: Risk Factors: DM, Current or recent (<one month) smoker, HTN, HLP, family history of CAD, obesity. Risk Scores: Score 0 - 3: 2.5% MACE over next 6 weeks - Discharge Home Score 4 - 6: 20.3% MACE over next 6 weeks - Admit for Clinical Observation Score 7 - 10: 72.7% MACE over next 6 weeks - Early Invasive Strategies (MAURILIO BENOIT APRN) Course & Med Decision Making: Course & Med Decision Making Pertinent Labs and Imaging studies reviewed. (See chart for details) [] 55 male presents with anxiety and panic attack. This is the third time patient has been in the emergency room today for separate complaints. patient is alert and oriented, hemodynamically stable. Patient has a history of anxiety and panic attacks. Advised patient to follow-up with PCP on Friday for further management of his anxiety. Patient given a 10 mg Valium in the emergency room. Patient denies illegal drug use. EKG ordered to rule out acute abnormalities. Patient is reporting some shortness of breath and wheezing noted bilaterally on auscultation. Breathing treatments and prednisone ordered. CTA also ordered due to shortness of breath. Patient's creatinine was elevated. Radiologist was informed that CTA still wanted to be performed per Dr. Joseph. Started patient on lactated Ringer's. CTA showed no evidence of a PE. But does appear to be suspicious for pneumonia. Patient was started on Rocephin and azithromycin. BNP was 3252, BUN 38, creatinine 2.7. Blood sugar was 170, patient does have a history of diabetes and is insulin-dependent. Patient's magnesium was 1.5, magnesium given in the emergency room. I spoke with regarding admission. Dr. Crawford is willing to accept patient at [facility]. Discussed admission with patient and patient is willing to stay overnight to be evaluated. Transfer of patient care to Dr. Joseph at 2041 (MAURILIO BENOIT APRN) Course & Med Decision Making Did not see or evaluate patient. Agree with AMMONIA TECHNICIAN's work-up and disposition per note. (GAVIN JOSEPH MD) Dragon Disclaimer: Dragon Disclaimer: This electronic medical record was generated, in whole or in part, using a voice recognition dictation system. (MAURILIO BENOIT APRN) Departure Departure: Impression: Primary Impression: GHULAM (acute kidney injury) Additional Impression: COPD exacerbation Disposition: 02 [facility]ORT [facility]M [facility] Admitting Physician: Eladio Crawford (MAURILIO BENOIT APRN) Condition: STABLE Referrals: KELSY VU MD (PCP) MAURILIO BENOIT APRN Feb 23, 2021 18:23 GAVIN JOSEPH MD Feb 23, 2021 22:51
[2021-02-23] MEDS ORDERED: IOHEXOL 350 MG/ML 100 ML VIAL. IV ONE (19:00)
[2021-02-23] MEDS ORDERED: IV RINGERS SOLUTION,LACTATED 1,000 ML IV ONE (19:00)
[2021-02-23] MEDS ORDERED: CONTRAST GIVEN. MC PRN (19:15)
[2021-02-23 19:28] LABS: CALCIUM 8.4 mg/dL (8.5-10.1); CREATININE 2.7 mg/dL (0.7-1.3); GFR 24.7; POTASSIUM 4.8 mmol/L (3.5-5.1)
[2021-02-23 19:31] LABS: BASO # 0.1 x10^3/uL (0.0-0.2); BASO % 1 % (0-3); EOS # 0.1 x10^3/uL (0.0-0.7); EOS % 1 % (0-3); HEMATOCRIT 39.8 % (39.0-53.0); HEMOGLOBIN 13.2 g/dL (13.0-17.5); LYMPH # 1.3 x10^3/uL (1.0-4.8); LYMPH % 12 % (24-48); MEAN CORPUSCULAR HEMOGLOBIN 30 pg (25-35); MEAN CORPUSCULAR HGB CONC 33 g/dL (31-37); MEAN CORPUSCULAR VOLUME 91 fL (79-100); MONO # 0.9 x10^3/uL (0.0-1.1); MONO % 9 % (0-9); NEUT # 8.4 x10^3uL (1.8-7.7); NEUT % 78 % (31-73); PLATELET COUNT 283 x10^3/uL (140-400); RED BLOOD COUNT 4.38 x10^6/uL (4.30-5.70); WHITE BLOOD COUNT 10.8 x10^3/uL (4.0-11.0)
[2021-02-23 19:41] LABS: ALBUMIN 2.1 g/dL (3.4-5.0); ALBUMIN/GLOBULIN RATIO 0.7 (1.0-1.7); MAGNESIUM 1.5 mg/dL (1.8-2.4); TOTAL BILIRUBIN 0.2 mg/dL (0.2-1.0); TOTAL PROTEIN 5.2 g/dL (6.4-8.2)
[2021-02-23 19:47] LABS: BARBITURATES NEG (NEG); BENZODIAZEPINES NEG (NEG); CANNABINOIDS NEG (NEG); COCAINE NEG (NEG); METHADONE NEG (NEG); OPIATES POS (NEG); PHENCYCLIDINE NEG (NEG)
[2021-02-23 19:48] LABS: AMPHETAMINE/METHAMPHETAMINE NEG (NEG)
[2021-02-23 20:00] LABS: AMORPHOUS SEDIMENT,UR PRESENT /HPF; BACTERIA,URINE 0 /HPF (0-FEW); BILIRUBIN,URINE NEG (NEG); CLARITY,URINE CLOUDY; COLOR,URINE YELLOW; GLUCOSE,URINE 250 mg/dL (NEG); GRANULAR CASTS,URINE OCC /HPF; HYALINE CASTS, URINE OCC /HPF; NITRITE,URINE NEG (NEG); RBC,URINE OCC /HPF (0-2); SQUAMOUS EPITHELIAL CELL,UR FEW /LPF; UROBILINOGEN,URINE 0.2 mg/dL (0.2 mg/dL)
--- NOTE | 2021-02-23 20:07 | RAD ---
CTA CHEST_ABDOMEN_AND PELVIS Clinical Indication: Anxiety, chest pain, upper abdominal pain COMPARISON: CT abdomen pelvis 01/15/2021 TECHNIQUE: Multiple contiguous axial images were obtained throughout the chest, abdomen, and pelvis with the use of IV contrast. Axial images were reformatted into coronal and sagittal planes. MIP reconstructions were obtained. 100 mL Omnipaque 350 was administered. One or more of the following dose reduction cindy hniques were utilized: Automated exposure control (AEC), Adjustment of mA and/or kV according to antoinette ent size, Use of iterative reconstruction technique such as ASiR, CT scan done according to ALARA and image gently/image wisely. Findings: The thyroid is symmetric. There is no axillary, mediastinal, or hilar adenopathy. No evidence of pulmonary thromboembolic disease. The thoracic aorta diameter is normal. Cardiomegaly. Coronary artery atherosclerotic disease. There is no pericardial effusion. The central airways are patent. No pulmonary mass or consolidation. Dependent and subsegmental atelectasis. Small right pleural effus ion. There is no pneumothorax. The liver, spleen, pancreas, and adrenal glands are unremarkable. Cholecystectomy. The kidneys are un remarkable. There is no significant mesenteric or retroperitoneal adenopathy identified. There is n o evidence of free intraperitoneal fluid or pneumoperitoneum. Visualized portions of the bowel are g rossly unremarkable. Mild aortoiliac atherosclerotic disease. A bladder is decompressed. There is no significant pelvic ascites. No significant iliac or inguinal adenopathy is identified. No acute osseous abnormality. Degenerative changes of the spine. IMPRESSION: 1. No evidence of pulmonary thromboembolic disease. No pulmonary mass or consolidation. 2. No acute intra-abdominal process. 3. Small right pleural effusion. 4. Coronary artery atherosclerotic disease. Electronically signed by: Colin Strickland MD (02/23/2021 8:04 PM) [facility]
[2021-02-23] MEDS ORDERED: methylPREDNISolone SOD SUCC PF 125 MG/2 ML VIAL. IV ONE (20:45)
[2021-02-23] MEDS ORDERED: MAGNESIUM SULFATE 2GM 50 ML IV ONE (20:45)
[2021-02-23] MEDS ORDERED: ALBUTEROL SULFATE 2.5 MG/3 ML NEBU. NEB ONE (20:45)
[2021-02-23] MEDS ORDERED: AZITHROMYCIN 500 MG in IV NORMAL SALINE 250ML 250 ML IV ONE (21:00)
[2021-02-23 22:05] VITALS: BP 149/98
--- NOTE | 2021-02-23 23:21 | EKG ---
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
[2021-02-24] MEDS ORDERED: oxyCODONE/APAP 7.5/325 1 TAB TABLET PO PRN (00:45)
[2021-02-24] MEDS: oxyCODONE ER 15 MG TAB.ER.12H PO SCH ×3 (03:14→08:59)
[2021-02-24] MEDS ORDERED: LORazepam 0.5 MG TABLET PO PRN (04:15)
[2021-02-24] MEDS ORDERED: MORPHINE SULFATE 4 MG/ML DISP.SYRIN. IV PRN (04:15)
[2021-02-24 06:08] VITALS: BP 159/96
[2021-02-24 07:15] LABS: HEMATOCRIT 41.9 % (39.0-53.0); HEMOGLOBIN 13.8 g/dL (13.0-17.5); RED BLOOD COUNT 4.6 x10^6/uL (4.30-5.70); RED CELL DISTRIBUTION WIDTH 15.6 % (11.5-14.5); WHITE BLOOD COUNT 8.3 x10^3/uL (4.0-11.0)
[2021-02-24 08:09] LABS: ALBUMIN 2.2 g/dL (3.4-5.0); ALBUMIN/GLOBULIN RATIO 0.5 (1.0-1.7); CALCIUM 8.7 mg/dL (8.5-10.1); CREATININE 2.7 mg/dL (0.7-1.3); GFR 24.7; TOTAL BILIRUBIN 0.2 mg/dL (0.2-1.0); TOTAL PROTEIN 6.4 g/dL (6.4-8.2)
[2021-02-24 08:45] LABS: POTASSIUM 4.6 mmol/L (3.5-5.1)
== END 2021-02-24 10:47 | disposition left against medical advice (07) ==
LOC: ER 18:00 → INTOOBSV 20:51 → 1 SOUTH 20:51
PROVIDERS: ADMIT Internal Medicine; ATTEND Internal Medicine
DX: N17.9 Acute kidney failure, unspecified (principal); J44.1 Chronic obstructive pulmonary disease with (acute) exacerbation; I11.0 Hypertensive heart disease with heart failure; I50.9 Heart failure, unspecified; J90 Pleural effusion, not elsewhere classified; F41.9 Anxiety disorder, unspecified; E11.9 Type 2 diabetes mellitus without complications; K21.9 Gastro-esophageal reflux disease without esophagitis; E78.00 Pure hypercholesterolemia, unspecified; F17.210 Nicotine dependence, cigarettes, uncomplicated; Z90.49 Acquired absence of other specified parts of digestive tract; Z79.899 Other long term (current) drug therapy
CPT/HCPCS: 36415; 71275; 74177; 80053; 80307; 81001; 82803; 82947; 83615; 83690; 83735; 83880; 84484; 85025; 85027; 85610; 85730; 93005; 94640; 96365; 96366; 96367; 96375; 99285; G0378; J0456; J0696; J2270; J2930; J3475; J7050; J7120; J7613; 96360; G0379

== ENCOUNTER 2021-02-24 12:15 | Observation (INO) | payer MEDICAID ==
[~2021-02-24] VITALS: Ht 185.4 cm; Wt 88.0 kg
--- NOTE | 2021-02-24 13:18 | RAD ---
Two-view chest dated 02/24/2021. Comparison made to 02/23/2021. CLINICAL INDICATION: Chest pain. FINDINGS: PA and lateral views obtained. Heart and mediastinal contours are stable. There is some patchy perihi lar opacity, similar to slightly increased. No pleural effusion. No pneumothorax. IMPRESSION: 1. Patchy perihilar airspace disease, atelectasis versus early pneumonia. Electronically signed by: Mekhi Teran MD (02/24/2021 1:15 PM) [id number]
--- NOTE | 2021-02-24 13:20 | EKG ---
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
--- NOTE | 2021-02-24 13:28 | PHYS DOC ---
Past History Past Medical History: Anxiety, Asthma, CHF, COPD, Diabetes, GERD, High Cholesterol, Other (MEKHI SHARPE APRN) Past Surgical History: Cholecystectomy, Other Additional Past Surgical Histo: carpal tunnel (MEKHI SHARPE APRN) Smoking: Cigarettes, Greater than 1 pack/day Alcohol Use: None Drug Use: None (MEKHI SHARPE APRN) Adult General Chief Complaint Chief Complaint: MULTIPLE COMPLAINTS HPI HPI Patient is a 55-year-old male presents to the emergency department stating "I n eed to be readmitted at the [facility] ". Patient states he left [facility] AGAINST MEDICAL ADVICE this morning after eating breakfast. Patient states he was unable to get any sleep in the hospital and had to go home to get some sleep. Patient denies any changes in his presenting symptoms from when he was admitted to the hospital yesterday. Patient states he has ongoing chest discomfort which she has had for the past 3 weeks. Patient states that he just wants to be readmitted to the hospital. Patient denies any other physical complaints or physical concerns. (MEKHI SHARPE APRN) Review of Systems Review of Systems 14 body systems of review of systems have been reviewed. See HPI for pertinent positives and negative responses, otherwise all other systems are negative, nonpertinent or noncontributory. (MEKHI SHARPE APRN) Allergies Allergies Allergies Coded Allergies Type Severity Reaction Last Updated Verified Penicillins Allergy Severe SWELLING 02/23/21 No (MEKHI SHARPE APRN) Physical Exam Physical Exam Constitutional: Well developed, well nourished, no acute distress, non-toxic appearance. HENT: Normocephalic, atraumatic, bilateral external ears normal, oropharynx moist, no oral exudates, nose normal. Eyes: PERRLA, EOMI, conjunctiva normal, no discharge. Neck: Normal range of motion, no tenderness, supple, no stridor. Cardiovascular:Heart rate regular rhythm, no murmur Lungs & Thorax: Bilateral breath sounds clear to auscultation upper lobes, diminished bilateral breath sounds lower lobes, no other adventitious lung sounds appreciated. Abdomen: Bowel sounds normal, soft, no tenderness, no masses, no pulsatile masses. Skin: Warm, dry, no erythema, no rash. Back: No tenderness, no CVA tenderness. Extremities: No tenderness, no cyanosis, no clubbing, ROM intact, no edema. Neurologic: Alert and oriented X 3, normal motor function, normal sensory function, no focal deficits noted. Psychologic: Affect normal, judgement normal, mood normal. (MEKHI SHARPE APRN) Current Patient Data Vital Signs Vital Signs Date Time Temp Pulse Resp B/P (MAP) Pulse Ox O2 Delivery O2 Flow Rate FiO2 02/24/21 12:29 98.7 90 18 161/84 (109) 97 Room Air (MEKHI SHARPE APRN) EKG EKG [] (MEKHI SHARPE APRN) Radiology/Procedures Radiology/Procedures PATIENT: MEKHI HARMON ACCOUNT: [id number] : 1965 LOCATION: ER AGE: 55 SEX: M EXAM STATUS: REG ER ORD. PHYSICIAN: MEKHI SHARPE APRN REASON: CHEST PAIN PROCEDURE: CHEST PA & LATERAL Two-view chest dated 02/24/2021. Comparison made to 02/23/2021. CLINICAL INDICATION: Chest pain. FINDINGS: PA and lateral views obtained. Heart and mediastinal contours are stable. There is some patchy perihilar opacity, similar to slightly increased. No pleural effusion. No pneumothorax. IMPRESSION: 1. Patchy perihilar airspace disease, atelectasis versus early pneumonia. Electronically signed by: Mekhi Genao MD (02/24/2021 1:15 PM) [id number] DICTATED AND SIGNED BY: MEKHI GENAO MD DATE: 02/24/21 1314 CC: MEKHI SHARPE APRN; KELSY LEE MD ~MTH0 0 (MEKHI SHARPE APRN) Heart Score C/O Chest Pain: Yes HEART Score for Chest Pain: HEART Score for Chest Pain Response (Comments) Value History Slighlty/Non-Suspicious 0 ECG Normal 0 Age >45 - < 65 1 Risk Factors 1 or 2 Risk Factors 1 Troponin < Normal Limit 0 Total 2 Risk Factors: Risk Factors: DM, Current or recent (<one month) smoker, HTN, HLP, family history of CAD, obesity. Risk Scores: Risk Factors: DM, Current or recent (<one month) smoker, HTN, HLP, family history of CAD, obesity. (MEKHI SHARPE APRN) Course & Med Decision Making Course & Med Decision Making Pertinent Labs and Imaging studies reviewed. (See chart for details) 55-year-old male, vital signs reviewed, presents emergency department requesting to be readmitted to the hospital after he left [facility] AMA. Patient was admitted yesterday for acute kidney injury, COPD exacerbation. With patie nt's continued complaints of chest pain, will order CBC, CMP, proBNP, troponin I, EKG, chest x-ray. Patient's creatinine elevated from 2.7 yesterday up to 3.0 today, BUN 37 up to 41 today, calcium 8.7 decreased to 7.9 today with patient's low albumin of 2.0, will not treat at this time, will alert admitting physician of level, proBNP elevated 30-52 yesterday up to 3433 today. Patient's chest x-ray interpreted by house radiologist interpretation concerning for early pneumonia. Will start patient on IV Zithromax, will defer IV Rocephin related to penicillin allergy and lieu of Levaquin regimen instead. Called and discussed patient case with inpatient management physician Dr. Crawford who agreed to accept admission to the medical surgical unit at [facility] with the information he was given by me, Dr. Crawford has assumed patient care at this time. (MEKHI SHARPE APRN) Dragon Disclaimer Dragon Disclaimer This electronic medical record was generated, in whole or in part, using a voice recognition dictation system. (MEKHI SHARPE APRN) Attending Co-Sign The patient was seen and interviewed as well as examined at the bedside. The chart was reviewed. The case was discussed. Agree with the plan of care. (DAQUAN GUTIÉRREZ DO) Departure Departure: Impression: Primary Impression: COPD exacerbation Additional Impressions: GHULAM (acute kidney injury) Pneumonia Disposition: ADMITTED INPATIENT Admitting Physician: Eladio Crawford (MEKHI SHARPE APRN) Condition: GUARDED (Admit to medical surgical unit to Dr. Crawford.) Referrals: KELSY LEE MD (PCP) Problem Qualifiers Additional Impressions: Pneumonia Pneumonia type: due to unspecified organism Laterality: bilateral Lung location: unspecified part of lung Qualified Codes: J18.9 - Pneumonia, unspecified organism MEKHI SHARPE APRN Feb 24, 2021 13:28 DAQUAN GUTIÉRREZ DO Feb 25, 2021 09:19
[2021-02-24 14:20] LABS: BASO # 0.1 x10^3/uL (0.0-0.2); BASO % 1 % (0-3); EOS % 0 % (0-3); HEMATOCRIT 36.3 % (39.0-53.0); HEMOGLOBIN 12.2 g/dL (13.0-17.5); LYMPH # 1.6 x10^3/uL (1.0-4.8); LYMPH % 16 % (24-48); MEAN CORPUSCULAR HEMOGLOBIN 30 pg (25-35); MEAN CORPUSCULAR HGB CONC 34 g/dL (31-37); MEAN CORPUSCULAR VOLUME 90 fL (79-100); MONO % 10 % (0-9); NEUT # 7.3 x10^3uL (1.8-7.7); NEUT % 73 % (31-73); PLATELET COUNT 277 x10^3/uL (140-400); RED BLOOD COUNT 4.02 x10^6/uL (4.30-5.70); RED CELL DISTRIBUTION WIDTH 15.6 % (11.5-14.5); WHITE BLOOD COUNT 10.1 x10^3/uL (4.0-11.0)
[2021-02-24 14:32] LABS: ANION GAP 11 (6-14); BLOOD UREA NITROGEN 41 mg/dL (8-26); BUN/CREATININE RATIO 14 (6-20); CALCIUM 7.9 mg/dL (8.5-10.1); CARBON DIOXIDE 23 mmol/L (21-32); CHLORIDE 106 mmol/L (98-107); GFR 21.8; GLUCOSE 221 mg/dL (70-99); POTASSIUM 4.7 mmol/L (3.5-5.1); SODIUM 140 mmol/L (136-145)
[2021-02-24 14:48] LABS: ALBUMIN/GLOBULIN RATIO 0.7 (1.0-1.7); ALK PHOS 93 U/L (46-116); ALT (SGPT) 12 U/L (16-63); AST (SGOT) 13 U/L (15-37); MAGNESIUM 1.8 mg/dL (1.8-2.4); TOTAL PROTEIN 4.9 g/dL (6.4-8.2)
[2021-02-24 14:49] LABS: TOTAL BILIRUBIN < 0.1 mg/dL (0.2-1.0)
[2021-02-24] MEDS ORDERED: levoFLOXacin PER PHARMACY 1 EACH. MC PRN (15:45)
[2021-02-24] MEDS ORDERED: AZITHROMYCIN 500 MG VIAL. IV ONE (15:49)
[2021-02-24] MEDS ORDERED: IV NORMAL SALINE 250ML 250 ML ONE (15:49)
[2021-02-24] MEDS ORDERED: AZITHROMYCIN 500 MG in IV NORMAL SALINE 250ML 250 ML IV ONE (16:00)
[2021-02-24] MEDS ORDERED: IV NORMAL SALINE 1,000ML 1,000 ML IV ONE (16:00)
[2021-02-24 16:48] VITALS: BP 178/86
--- NOTE | 2021-02-24 17:05 | NUR ---
pt admitted from ed via gurney to room 123 at 1630. pt ambulated to bed. antibiotic infusing.
[2021-02-24] MEDS ORDERED: AZITHROMYCIN 250 MG in IV NORMAL SALINE 250ML 250 ML IV SCH (20:00)
[2021-02-24 20:19] VITALS: BP 147/76
[2021-02-24] MEDS ORDERED: MEROPENEM 500 MG in IV NORMAL SALINE 50ML 50 ML IV SCH (21:00)
--- NOTE | 2021-02-24 21:03 | NUR ---
Pt yelled at this nurse "I need help! You are starting to piss me off! I need to pee and you won't leave me alone!" Pt educated that he was here for a fall and he stated, "I don't need your help!"
[2021-02-24] MEDS ORDERED: LORazepam 0.5 MG TABLET PO PRN (21:45)
[2021-02-24] MEDS ORDERED: ALBUTEROL SULFATE 2.5 MG/3 ML NEBU. IH PRN (22:00)
[2021-02-24] MEDS ORDERED: DICLOFENAC SODIUM 1% TOPICAL GEL 100GM TUBE. TP PRN (22:00)
[2021-02-24] MEDS ORDERED: IV NORMAL SALINE 1,000ML 1,000 ML IV SCH (22:00)
[2021-02-24] MEDS: ONDANSETRON ODT 4 MG TAB.RAPDIS PO SCH ×2 (22:00→23:28)
[2021-02-24] MEDS ORDERED: oxyCODONE/APAP 7.5/325 1 TAB TABLET PO PRN (22:00)
[2021-02-24] MEDS ORDERED: NON FORMULARY ITEM (Prednisone 50 MG) PO PRN (22:00)
[2021-02-24] MEDS ORDERED: oxyCODONE ER 15 MG TAB.ER.12H PO SCH (23:00)
[2021-02-25 00:04] VITALS: BP 161/94
--- NOTE | 2021-02-25 06:25 | NUR ---
Pt has been sleeping but when awake pt is volatile and resistive to cares. Pt startles easily when he is asleep. Pt is impulsive and resistive to cares. Pt states, "I'm sick help me! Leave me alone!"
[2021-02-25] MEDS ORDERED: GEMFIBROZIL 600 MG TABLET. PO SCH (07:30)
[2021-02-25] MEDS ORDERED: PANTOPRAZOLE 40 MG TABLET. PO SCH (07:30)
[2021-02-25] MEDS ORDERED: METOCLOPRAMIDE 5 MG TABLET PO SCH (07:30)
[2021-02-25] MEDS ORDERED: BUDESONIDE 0.5 MG/2 ML NEBU NEB SCH (08:00)
[2021-02-25] MEDS ORDERED: GABAPENTIN 400 MG CAPSULE. PO SCH (09:00)
[2021-02-25] MEDS ORDERED: FAMOTIDINE 20 MG TABLET PO SCH (09:00)
[2021-02-25] MEDS ORDERED: buPROPion SR 150 MG TABLET.SA PO SCH (09:00)
[2021-02-25] MEDS ORDERED: LACTOBACILLUS RHAMNOSUS GG 1 CAPSULE. PO SCH (09:00)
[2021-02-25] MEDS ORDERED: FUROSEMIDE 20 MG TABLET PO SCH (09:00)
[2021-02-25] MEDS ORDERED: LISINOPRIL 10 MG TABLET PO SCH (09:00)
[2021-02-25] MEDS ORDERED: INSULIN GLARGINE SYRINGE. SQ SCH (21:00)
== END 2021-02-25 08:45 | disposition left against medical advice (07) ==
LOC: ER 12:15 → 1 SOUTH 15:42 → INTOOBSV 15:42
PROVIDERS: ADMIT Internal Medicine; ATTEND Internal Medicine
DX: J44.1 Chronic obstructive pulmonary disease with (acute) exacerbation (principal); N17.9 Acute kidney failure, unspecified; J18.9 Pneumonia, unspecified organism; I11.0 Hypertensive heart disease with heart failure; I50.9 Heart failure, unspecified; E11.9 Type 2 diabetes mellitus without complications; E78.00 Pure hypercholesterolemia, unspecified; J44.0 Chronic obstructive pulmonary disease with (acute) lower respiratory infection; Z87.891 Personal history of nicotine dependence
CPT/HCPCS: 36415; 71046; 80053; 82553; 83735; 83880; 84484; 85025; 93005; 96361; 96365; 96366; 96367; 99285; G0378; J0456; J2020; J2185; J7030; J7050; Q0162; G0379

== ENCOUNTER 2021-03-05 07:11 | Emergency (ER) | payer MEDICAID ==
[~2021-03-05] VITALS: Ht 185.4 cm; Wt 91.8 kg
[2021-03-05] MEDS ORDERED: ASPIRIN CHEWABLE 81 MG TABLET. PO ONE (07:30)
[2021-03-05 07:44] LABS: BASO # 0.1 x10^3/uL (0.0-0.2); BASO % 1 % (0-3); EOS # 0.3 x10^3/uL (0.0-0.7); EOS % 3 % (0-3); HEMATOCRIT 38.3 % (39.0-53.0); HEMOGLOBIN 12.6 g/dL (13.0-17.5); LYMPH # 1.5 x10^3/uL (1.0-4.8); LYMPH % 16 % (24-48); MEAN CORPUSCULAR HEMOGLOBIN 30 pg (25-35); MEAN CORPUSCULAR HGB CONC 33 g/dL (31-37); MEAN CORPUSCULAR VOLUME 92 fL (79-100); MONO # 0.8 x10^3/uL (0.0-1.1); MONO % 8 % (0-9); NEUT # 6.9 x10^3uL (1.8-7.7); NEUT % 72 % (31-73); PLATELET COUNT 273 x10^3/uL (140-400); RED BLOOD COUNT 4.16 x10^6/uL (4.30-5.70); WHITE BLOOD COUNT 9.6 x10^3/uL (4.0-11.0)
[2021-03-05 07:51] LABS: CALCIUM 7.6 mg/dL (8.5-10.1); CREATININE 2.5 mg/dL (0.7-1.3); GFR 26.9; POTASSIUM 5.2 mmol/L (3.5-5.1)
--- NOTE | 2021-03-05 08:10 | RAD ---
XR CHEST 2V INDICATION: chest pain COMPARISON STUDY: Chest radiograph 02/24/2021. CT chest 02/23/2021. FINDINGS: Lungs: Normal lung volume. No pulmonary mass or consolidation. The tracheobronchial tree and hilar st ructures are normal. Pleura: No pleural effusion or pneumothorax. Heart and Mediastinum: The cardiomediastinal silhouette is normal. The great vessels of the thorax ar e normal. Bones and Soft Tissues: The bones and soft tissues are within normal limits. IMPRESSION: No acute cardiopulmonary process. Electronically signed by: Colin Strickland MD (03/05/2021 8:08 AM) [id number]
--- NOTE | 2021-03-05 08:41 | PHYS DOC ---
Past History Past Medical History: Anxiety, Asthma, CHF, COPD, Diabetes, GERD, High Cholesterol, Other Past Surgical History: Cholecystectomy, Other Additional Past Surgical Histo: carpal tunnel Smoking: Cigarettes, Greater than 1 pack/day Alcohol Use: None Drug Use: None Adult General Chief Complaint Chief Complaint: CHEST PAIN HPI HPI Patient is a 55-year-old male who presents to the emergency room complaining of a dull chest pain that is been ongoing for the last 2 weeks. He states is been constant in nature. It did get significantly worse yesterday. He states he woke up this morning and had multiple episodes of vomiting. He denies any abdominal pain or diarrhea. He denies any cough. He does have chronic shortness of breath which he states is unchanged. Chest pain does not get bet ter or worse. Review of Systems Review of Systems Complete ROS is negative unless otherwise documented in HPI Current Medications Current Medications Current Medications Medications (Trade) Dose Ordered Sig/Marilou Start Time Stop Time Status Last Admin Dose Admin Aspirin (Aspirin Chewable) 324 mg 1X ONCE 03/05/21 07:30 03/05/21 07:31 DC 03/05/21 07:37 324 MG Allergies Allergies Allergies Coded Allergies Type Severity Reaction Last Updated Verified Penicillins Allergy Severe SWELLING 02/23/21 No Physical Exam Physical Exam General: Awake, alert, NAD. Well Nourished, well hydrated. Cooperative HEENT: Atraumatic, EOMI, PERRL, airway patent, moist oral mucosa Neck: Supple, trachea midline Respiratory: CTA bilaterally, normal effort, no wheezing/crackles CV: RRR, no murmur, cap refill <2 GI: Soft, nondistended, nontender, no masses MSK: No obvious deformities Skin: Warm, dry, intact Neuro: A&O x3, speech NL, sensory and motor grossly intact, no focal deficits Psych: Normal affect, normal mood, not suicidal or homicidal Current Patient Data Vital Signs Vital Signs Date Time Temp Pulse Resp B/P (MAP) Pulse Ox O2 Delivery O2 Flow Rate FiO2 03/05/21 07:11 98.1 81 18 132/69 (90) 96 Room Air Lab Results Laboratory Tests Test 03/05/21 07:20 White Blood Count 9.6 x10^3/uL (4.0-11.0) Red Blood Count 4.16 x10^6/uL (4.30-5.70) L Hemoglobin 12.6 g/dL (13.0-17.5) L Hematocrit 38.3 % (39.0-53.0) L Mean Corpuscular Volume 92 fL (79-100) Mean Corpuscular Hemoglobin 30 pg (25-35) Mean Corpuscular Hemoglobin Concent 33 g/dL (31-37) Red Cell Distribution Width 15.0 % (11.5-14.5) H Platelet Count 273 x10^3/uL (140-400) Neutrophils (%) (Auto) 72 % (31-73) Lymphocytes (%) (Auto) 16 % (24-48) L Monocytes (%) (Auto) 8 % (0-9) Eosinophils (%) (Auto) 3 % (0-3) Basophils (%) (Auto) 1 % (0-3) Neutrophils # (Auto) 6.9 x10^3uL (1.8-7.7) Lymphocytes # (Auto) 1.5 x10^3/uL (1.0-4.8) Monocytes # (Auto) 0.8 x10^3/uL (0.0-1.1) Eosinophils # (Auto) 0.3 x10^3/uL (0.0-0.7) Basophils # (Auto) 0.1 x10^3/uL (0.0-0.2) Sodium Level 142 mmol/L (136-145) Potassium Level 5.2 mmol/L (3.5-5.1) H Chloride Level 108 mmol/L (98-107) H Carbon Dioxide Level 22 mmol/L (21-32) Anion Gap 12 (6-14) Blood Urea Nitrogen 38 mg/dL (8-26) H Creatinine 2.5 mg/dL (0.7-1.3) H Estimated GFR (Cockcroft-Gault) 26.9 Glucose Level 218 mg/dL (70-99) H Calcium Level 7.6 mg/dL (8.5-10.1) L Troponin I Quantitative < 0.017 ng/mL (0-0.055) DZ-Fgp-V-Type Natriuretic Peptide 1898 pg/mL (0-124) H EKG EKG [] Radiology/Procedures Radiology/Procedures [] Heart Score C/O Chest Pain: Yes HEART Score for Chest Pain: HEART Score for Chest Pain Response (Comments) Value History Moderately Suspicious 1 ECG Nonspecific Repolarizatio 1 Age >45 - < 65 1 Risk Factors 1 or 2 Risk Factors 1 Troponin < Normal Limit 0 Total 4 Risk Factors: Risk Factors: DM, Current or recent (<one month) smoker, HTN, HLP, family history of CAD, obesity. Risk Scores: Risk Factors: DM, Current or recent (<one month) smoker, HTN, HLP, family history of CAD, obesity. Course & Med Decision Making Course & Med Decision Making Pertinent Labs and Imaging studies reviewed. (See chart for details) Patient is a 55 year-old male who presents to the Emergency Room complaining of chest pain and vomiting. History is significant for constant chest pain. At this time, given patient's risk factors and story there is concern for possible cardiac pathology. EKG was ordered and shows sinus arrhythmia with premature complexes. At this time there is no signs of STEMI, pericarditis, or unstable arrthymia on EKG. Patient has received aspirin today. CBC, BMP, troponin, CXR were ordered to evaluate for causes of chest pain including ACS, anemia, electrolyte abnormalities that can lead to arrhythmias, PTX, pneumonia, pneumomediastinum. Patient does not have any abdominal tenderness that would suggest pancreaititis or cholecystitis and does not need an abdominal work up at this time. Patient's HEART score is 4 placing the patient at moderate risk. Clyde caldwell continues to have a significant acute kidney injury compared to his lab work in November. He also has several electrolyte abnormalities. I have recommended to the patient that he be admitted to the hospital and ideally transferred to [facility] for evaluation by a search analyst. Patient does not want to be transferred or admitted. We will give him information to follow-up with nephrology. Patient will sign out AMA. Patient has requested to leave AGAINST MEDICAL ADVICE. I have discussed the benefits of staying for a full work up and the patient would like to leave. I discussed the risks of leaving including but not limited to , permenant end-organ damage, worsening of condition and patient stated understanding. Patient signed out a gainst medical advice. Dragon Disclaimer Dragon Disclaimer This electronic medical record was generated, in whole or in part, using a voice recognition dictation system. Departure Departure: Impression: Primary Impression: GHULAM (acute kidney injury) Additional Impressions: Nausea and vomiting Chest pain Disposition: LEFT AGAINST MEDICAL ADVICE Condition: GUARDED Referrals: KELSY LEE MD (PCP) Patient Instructions: Acute Kidney Injury, Chest Pain (Nonspecific) Additional Instructions: Please follow-up with Dr. Zheng the kidney specialist. You can reach them at [phone] Problem Qualifiers MIRACLE MENDOSA MD Mar 05, 2021 08:40
[2021-03-05 09:05] LABS: ALBUMIN 1.9 g/dL (3.4-5.0); ALK PHOS 113 U/L (46-116); ALT (SGPT) 13 U/L (16-63); AST (SGOT) 14 U/L (15-37); TOTAL BILIRUBIN 0.1 mg/dL (0.2-1.0); TOTAL PROTEIN 5.9 g/dL (6.4-8.2)
[2021-03-05 09:07] LABS: DIRECT BILIRUBIN < 0.1 mg/dL (0.0-0.2)
[2021-03-05] MEDS ORDERED: GABAPENTIN 100 MG CAPSULE. PO ONE (09:15)
[2021-03-05 09:42] VITALS: BP 143/95
--- NOTE | 2021-03-05 19:52 | EKG ---
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
== END 2021-03-05 09:46 | disposition left against medical advice (07) ==
LOC: ER 07:11
DX: N17.9 Acute kidney failure, unspecified (principal); R11.2 Nausea with vomiting, unspecified; R07.89 Other chest pain; F41.9 Anxiety disorder, unspecified; J44.9 Chronic obstructive pulmonary disease, unspecified; I50.9 Heart failure, unspecified; E11.9 Type 2 diabetes mellitus without complications; K21.9 Gastro-esophageal reflux disease without esophagitis; E78.00 Pure hypercholesterolemia, unspecified; F17.210 Nicotine dependence, cigarettes, uncomplicated; Z88.0 Allergy status to penicillin
CPT/HCPCS: 36415; 71046; 80048; 80076; 83880; 84484; 85025; 93005; 99285

== ENCOUNTER 2021-03-18 14:34 | Emergency (ER) | payer MEDICAID ==
[~2021-03-18] VITALS: Ht 185.4 cm; Wt 100.0 kg
--- NOTE | 2021-03-18 15:28 | PHYS DOC ---
Past History Past Medical History: Anxiety, Asthma, CHF, COPD, Diabetes, GERD, High Cholesterol, Other (MAURILIO BENOIT APRN) Past Surgical History: Cholecystectomy, Other Additional Past Surgical Histo: carpal tunnel (MAURILIO BENOIT APRN) Smoking: Cigarettes, Greater than 1 pack/day Alcohol Use: None Drug Use: None (MAURILIO BENOIT APRN) General Adult EDM: Chief Complaint: ANXIETY/PANIC ATTACK HPI: HPI: Patient is a 56-year-old male presents with chest pain, shortness of breath, anxiety. Patient states "I think I am having a panic attack". Patient was recently seen by PCP and placed on unknown anxiety medication. Patient states "I did not take it because I am only supposed to take it at night". Patient reports chest tightness and shortness of breath. Patient states he was sitting on the couch watching TV about an hour ago when the chest tightness started. Denies anything making the pain better or worse. Denies taking anything for pain prior to arrival. Patient's blood pressure was elevated on arrival but st ates "I have not take my blood pressure medicine in a couple of days". Patient has a history of anxiety, diabetes, hypertension (MAURILIO BENOIT APRN) Review of Systems: Review of Systems: Constitutional: Denies fever or chills Eyes: Denies change in visual acuity HENT: Denies nasal congestion or sore throat Respiratory: Reports shortness of breath, denies cough Cardiovascular: Reports chest pain, denies edema GI: Denies abdominal pain, nausea, vomiting, bloody stools or diarrhea : Denies dysuria Musculoskeletal: Denies back pain or joint pain Integument: Denies rash Neurologic: Denies headache, focal weakness or sensory changes Endocrine: Denies polyuria or polydipsia Lymphatic: Denies swollen glands Psychiatric: Reports anxiety and panic attack (MAURILIO BENOIT APRN) Current Medications: Current Meds: Current Medications Medications (Trade) Dose Ordered Sig/Marilou Start Time Stop Time Status Last Admin Dose Admin Lorazepam (Ativan Inj) 1 mg 1X ONCE 03/18/21 15:00 03/18/21 15:14 DC (MAURILIO BENOIT APRN) Allergies: Allergies: Allergies Coded Allergies Type Severity Reaction Last Updated Verified Penicillins Allergy Severe SWELLING 02/23/21 No (MAURILIO BENOIT APRN) Physical Exam: PE: Constitutional: Well developed, well nourished, no acute distress, non-toxic appearance. [] HENT: Normocephalic, atraumatic, bilateral external ears normal, oropharynx moist, no oral exudates, nose normal. [] Eyes: PERRLA, EOMI, conjunctiva normal, no discharge. [] Neck: Normal range of motion, no tenderness, supple, no stridor. [] Cardiovascular:Heart rate regular rhythm, no murmur [] Lungs & Thorax: Bilateral breath sounds clear to auscultation [] Abdomen: Bowel sounds normal, soft, no tenderness, no masses, no pulsatile masses. [] Skin: Warm, dry, no erythema, no rash. [] Back: No tenderness, no CVA tenderness. [] Extremities: No tenderness, no cyanosis, no clubbing, ROM intact, no edema. [] Neurologic: Alert and oriented X 3, normal motor function, normal sensory function, no focal deficits noted. [] Psychologic: Affect normal, judgement normal, mood normal. [] (MAURILIO BENOIT APRN) EKG: EKG: [] (MAURILIO BENOIT APRN) Radiology/Procedures: Radiology/Procedures: []EXAM: CHEST ONE VIEW. HISTORY: Shortness of breath. COMPARISON: 03/05/2021. FINDINGS: A frontal view of the chest is obtained. There are no confluent infiltrates. There is no pneumothorax or pleural effusion. The heart is not enlarged. IMPRESSION: 1. No confluent infiltrates. Electronically signed by: Yajaira Castillo MD (03/18/2021 3:41 PM) [facility] (MAURILIO BENOIT APRN) Heart Score: C/O Chest Pain: Yes HEART Score for Chest Pain: HEART Score for Chest Pain Response (Comments) Value History Moderately Suspicious 1 ECG Nonspecific Repolarizatio 1 Age >45 - < 65 1 Risk Factors >3 Risk Factors or Hx CAD 2 Troponin < Normal Limit 0 Total 5 Risk Factors: Risk Factors: DM, Current or recent (<one month) smoker, HTN, HLP, family history of CAD, obesity. Risk Scores: Score 0 - 3: 2.5% MACE over next 6 weeks - Discharge Home Score 4 - 6: 20.3% MACE over next 6 weeks - Admit for Clinical Observation Score 7 - 10: 72.7% MACE over next 6 weeks - Early Invasive Strategies (MAURILIO BENOIT APRN) Course & Med Decision Making: Course & Med Decision Making Pertinent Labs and Imaging studies reviewed. (See chart for details) [] 56-year-old male who presents with chest tightness, shortness of breath, and anxiety. Patient has a history of anxiety attacks and is seen in the emergency room often for same symptoms. Patient's blood pressure was elevated to 211/180. Patient is noncompliant and has not taken blood pressure medicine in a few days. Patient was requesting medication for anxiety attack. Patient was just started on anxiety medication but unsure what he is taking. Patient denies taking that medication due to only supposed to be taking it at night per his PCP. Patient was given 1 mg of Ativan for anxiety. Lisinopril given to treat blood pressure. Patient's blood pressures 230/120. Patient given 10 mg of hydralazine. Patient stating that his symptoms have resolved. Patient most likely was having anxiety which was causing chest tightness and shortness of breath. Heart score of 5. Patient has been seen multiple times for same symptoms and usually leaves AMA after given something for anxiety. Patient's troponin was negative. Chest x-ray was negative for any acute abnormalities. Patient given 10 mg of hydralazine. Patient's blood pressure still in the 200s. Reassessment of blood pressure patient's 163/69. Discussed lab results with patient. Patient's D-dimer is elevated along with creatinine and BNP. Patient is refusing to stay and have further testing or be admitted for further evaluation. Patient is requesting to leave and agreeing to sign AMA paperwork. (MAURILIO BENOIT APRN) Course & Med Decision Making I oversaw on the above date of service of this patient. This patient was evaluated, examined, treated, and dispositioned from the emergency department by the mid-level practitioner. I reviewed case with LOZENGE MAKER and helped provide guidance on direction of care. I reviewed note and agree to findings, plan of care, and disposition as stated. Electronically signed, Rayna Franks DO (RAYNA FRANKS DO) Geovanna Disclaimer: Geovanna Disclaimer: This electronic medical record was generated, in whole or in part, using a voice recognition dictation system. (BENOIT,MAURILIO RADIOLOGIC THERAPIST) Departure Departure: Impression: Primary Impression: Panic attack Additional Impressions: Chest tightness Chronic kidney disease Qualified Codes: N18.9 - Chronic kidney disease, unspecified Disposition: 07 LEFT AGAINST MEDICAL ADVICE Condition: STABLE Referrals: KELSY LEE MD (PCP) MAURILIO BENOIT APRN Mar 18, 2021 15:28 RAYNA FRANKS DO Mar 19, 2021 06:49
--- NOTE | 2021-03-18 15:28 | EKG ---
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
[2021-03-18 15:42] LABS: BASO % 1 % (0-3); EOS # 0.2 x10^3/uL (0.0-0.7); EOS % 2 % (0-3); HEMATOCRIT 32.8 % (39.0-53.0); HEMOGLOBIN 11.1 g/dL (13.0-17.5); LYMPH # 1.1 x10^3/uL (1.0-4.8); LYMPH % 12 % (24-48); MEAN CORPUSCULAR HEMOGLOBIN 31 pg (25-35); MEAN CORPUSCULAR HGB CONC 34 g/dL (31-37); MEAN CORPUSCULAR VOLUME 91 fL (79-100); MONO # 0.6 x10^3/uL (0.0-1.1); MONO % 7 % (0-9); NEUT % 78 % (31-73); PLATELET COUNT 218 x10^3/uL (140-400); RED CELL DISTRIBUTION WIDTH 14.1 % (11.5-14.5)
--- NOTE | 2021-03-18 15:43 | RAD ---
EXAM: CHEST ONE VIEW. HISTORY: Shortness of breath. COMPARISON: 03/05/2021. FINDINGS: A frontal view of the chest is obtained. There are no confluent infiltrates. There is no pneumothorax or pleural effusion. The heart is not en larged. IMPRESSION: 1. No confluent infiltrates. Electronically signed by: Yajaira Castillo MD (03/18/2021 3:41 PM) [facility]
[2021-03-18] MEDS ORDERED: LISINOPRIL 10 MG TABLET PO ONE (15:45)
[2021-03-18] MEDS ORDERED: hydrALAZINE 20 MG/ML VIAL. IV ONE ×2 (16:00→16:45)
[2021-03-18 16:37] VITALS: BP 230/120
[2021-03-18 17:19] LABS: ALBUMIN/GLOBULIN RATIO 0.5 (1.0-1.7); CALCIUM 8.6 mg/dL (8.5-10.1); CREATININE 2.6 mg/dL (0.7-1.3); GFR 25.7; MAGNESIUM 1.4 mg/dL (1.8-2.4); POTASSIUM 5.1 mmol/L (3.5-5.1); TOTAL BILIRUBIN 0.2 mg/dL (0.2-1.0); TOTAL PROTEIN 5.9 g/dL (6.4-8.2)
[2021-03-19] MEDS ORDERED: QUET50TA PO (09:59)
[2021-03-19] MEDS ORDERED: ATOR20TA58 PO (09:59)
== END 2021-03-18 18:06 | disposition left against medical advice (07) ==
LOC: ER 14:34
DX: F41.0 Panic disorder [episodic paroxysmal anxiety] (principal); E11.22 Type 2 diabetes mellitus with diabetic chronic kidney disease; I13.0 Hypertensive heart and chronic kidney disease with heart failure and stage 1 through stage 4 chronic kidney disease, or unspecified chronic kidney disease; N18.9 Chronic kidney disease, unspecified; I50.9 Heart failure, unspecified; R07.89 Other chest pain; J44.9 Chronic obstructive pulmonary disease, unspecified; E78.00 Pure hypercholesterolemia, unspecified; F41.9 Anxiety disorder, unspecified; F17.210 Nicotine dependence, cigarettes, uncomplicated; Z88.0 Allergy status to penicillin
CPT/HCPCS: 36415; 71045; 80053; 83735; 83880; 84484; 85025; 85379; 93005; 96374; 96375; 99285; J0360; J2060

== ENCOUNTER 2021-03-19 03:36 | Observation (INO) | payer MEDICAID ==
[~2021-03-19] VITALS: Ht 185.4 cm; Wt 98.6 kg
[2021-03-19] MEDS ORDERED: ENOXAPARIN ** NOTE DOSE ** SYRINGE SQ ONE (04:00)
[2021-03-19] MEDS ORDERED: NITROGLYCERIN OINT 1 GM PACKET. TP ONE (04:00)
[2021-03-19] MEDS ORDERED: LORazepam 1 MG TABLET PO ONE (04:00)
[2021-03-19] MEDS ORDERED: ASPIRIN CHEWABLE 81 MG TABLET. PO ONE (04:00)
[2021-03-19] MEDS ORDERED: IV RINGERS SOLUTION,LACTATED 1,000 ML IV SCH (04:00)
[2021-03-19 04:19] LABS: BASO % 0 % (0-3); EOS # 0.3 x10^3/uL (0.0-0.7); EOS % 3 % (0-3); HEMATOCRIT 31.2 % (39.0-53.0); HEMOGLOBIN 10.5 g/dL (13.0-17.5); LYMPH # 1.6 x10^3/uL (1.0-4.8); LYMPH % 16 % (24-48); MEAN CORPUSCULAR HEMOGLOBIN 31 pg (25-35); MEAN CORPUSCULAR HGB CONC 34 g/dL (31-37); MEAN CORPUSCULAR VOLUME 90 fL (79-100); MONO # 0.9 x10^3/uL (0.0-1.1); MONO % 9 % (0-9); NEUT % 71 % (31-73); PLATELET COUNT 226 x10^3/uL (140-400); RED BLOOD COUNT 3.46 x10^6/uL (4.30-5.70); RED CELL DISTRIBUTION WIDTH 14.4 % (11.5-14.5); WHITE BLOOD COUNT 9.8 x10^3/uL (4.0-11.0)
--- NOTE | 2021-03-19 04:31 | PHYS DOC ---
Past History Past Medical History: Bronchitis, CHF, COPD, Diabetes, Hypertension Past Surgical History: Appendectomy Additional Past Surgical Histo: carpal tunnel Smoking: Cigarettes, Greater than 1 pack/day Alcohol Use: None Drug Use: None General Adult EDM: Chief Complaint: SHORTNESS OF BREATH HPI: HPI: "...I was here earlier.. but I didnt stay... I got chest pain again and short of breath.... I get panic... Patient is a 56 year old male who presents with chest pain and dyspnea. Patient does continue to smoke approximate 1 pack of cigarettes per day. Patient denies any specific ill contacts. No recent travel. Patient has past medical history of anxiety, asthma, CHF, COPD, diabetes, GERD, elevated cholesterol and lipids, and noncompliance medical regimen. Patient has been known for frequent ER visits for COPD and dyspnea complaints and leaving AMA before completion of therapy or evaluation. Patient returns to the emergency department after a visit today with continued chest pain and dyspnea. Has agreed to complete his evaluation and if needed be admitted. Patient has not completed Covid vaccination as yet. Denies any specific risk factors for acquiring Covid at this time. Review of Systems: Review of Systems: Constitutional: Denies fever or chills Eyes: Denies change in visual acuity HENT: Complains of nasal congestion and nasal drainage Respiratory: Complains of cough and shortness of breath Cardiovascular: Complains of chest pain and ankle edema GI: Denies abdominal pain, nausea, vomiting, bloody stools or diarrhea : Denies dysuria Musculoskeletal: Denies back pain or joint pain Integument: Denies rash Neurologic: Denies headache, focal weakness or sensory changes Endocrine: Denies polyuria or polydipsia Lymphatic: Denies swollen glands Psychiatric: Complains of severe bouts of anxiety anxiety Family History: Family History: Noncontributory to presentation. Current Medications: Current Meds: Current Medications Medications (Trade) Dose Ordered Sig/Marilou Start Time Stop Time Status Last Admin Dose Admin Aspirin (Aspirin Chewable) 324 mg 1X ONCE 03/19/21 04:00 03/19/21 04:08 DC Enoxaparin Sodium (Lovenox 100mg Syringe) 100 mg 1X ONCE 03/19/21 04:00 03/19/21 04:08 DC Lactated Ringer's 1,000 ml @ 100 mls/hr Q10H 03/19/21 04:00 03/19/21 13:59 Lorazepam (Ativan) 1 mg 1X ONCE 03/19/21 04:00 03/19/21 04:08 DC Nitroglycerin (Nitro-Bid Oint) 0.5 inch 1X ONCE 03/19/21 04:00 03/19/21 04:08 DC Allergies: Allergies: Allergies Coded Allergies Type Severity Reaction Last Updated Verified Penicillins Allergy Severe SWELLING 02/23/21 No Physical Exam: PE: Constitutional: Moderate acute distress, non-toxic appearance. [] HENT: Normocephalic, atraumatic, bilateral external ears normal, oropharynx moist, no oral exudates, nose swollen turbinates and clear rhinorrhea. Poor dentition Eyes: PERRLA, EOMI, conjunctiva normal, no discharge. [] Neck: Normal range of motion, no tenderness, supple, no stridor. [] Cardiovascular: Tachycardia monitor shows a sinus rhythm with occasional PAC. No murmur appreciated. Lungs & Thorax: Bilateral breath sounds equal apex with wheezes throughout and basilar crackles on auscultation [] Abdomen: Bowel sounds normal, soft, no tenderness, no masses, no pulsatile masses. Old surgery scars Skin: Warm, dry, no erythema, no rash. Poor turgor Back: No tenderness, no CVA tenderness. [] Extremities: No tenderness, no cyanosis, no clubbing, ROM intact, ankle edema. [] No cording appreciated. Old surgery scars Neurologic: Alert and oriented X 3, moves all extremities on request, does have distal sensory, no focal deficits noted. [] Psychologic: Affect extremely anxious, judgement normal, mood normal. [] Current Patient Data: Labs: Laboratory Tests Test 03/19/21 04:05 White Blood Count 9.8 x10^3/uL (4.0-11.0) Red Blood Count 3.46 x10^6/uL (4.30-5.70) L Hemoglobin 10.5 g/dL (13.0-17.5) L Hematocrit 31.2 % (39.0-53.0) L Mean Corpuscular Volume 90 fL (79-100) Mean Corpuscular Hemoglobin 31 pg (25-35) Mean Corpuscular Hemoglobin Concent 34 g/dL (31-37) Red Cell Distribution Width 14.4 % (11.5-14.5) Platelet Count 226 x10^3/uL (140-400) Neutrophils (%) (Auto) 71 % (31-73) Lymphocytes (%) (Auto) 16 % (24-48) L Monocytes (%) (Auto) 9 % (0-9) Eosinophils (%) (Auto) 3 % (0-3) Basophils (%) (Auto) 0 % (0-3) Neutrophils # (Auto) 7.0 x10^3uL (1.8-7.7) Lymphocytes # (Auto) 1.6 x10^3/uL (1.0-4.8) Monocytes # (Auto) 0.9 x10^3/uL (0.0-1.1) Eosinophils # (Auto) 0.3 x10^3/uL (0.0-0.7) Basophils # (Auto) 0.0 x10^3/uL (0.0-0.2) EKG: EKG: My interpretation of EKG shows a sinus rhythm at 82 bpm. Does have occasional PACs. Otherwise no acute finding. No findings of STEMI with contralateral deysi nges. [] Radiology/Procedures: Radiology/Procedures: [][place] [address] IMAGING REPORT Signed PATIENT: NUNU HARMON ACCOUNT: [id number] : 1965 LOCATION: ER AGE: 56 SEX: M EXAM STATUS: REG ER ORD. PHYSICIAN: RADHA REARDON MD REASON: cp PROCEDURE: PORTABLE CHEST 1V XR CHEST 1V INDICATION: Reason: cp / Spl. Instructions: / History: . COMPARISON STUDY: 03/18/2021. FINDINGS: Lungs: Normal lung volume. No focal airspace disease. Normal pulmonary vasculature. Pleura: No pleural effusion or pneumothorax. Heart and Mediastinum: Stable cardiomediastinal silhouette and great vessels. IMPRESSION: No consolidation. Electronically signed by: Cyndi Strickland MD (03/19/2021 6:06 AM) [facility] DICTATED AND SIGNED BY: CYNDI STRICKLAND MD DATE: 03/19/21 06 CC: KELSY LEE MD; RADHA REARDON MD ~MTH0 0 Heart Score: C/O Chest Pain: Yes HEART Score for Chest Pain: HEART Score for Chest Pain Response (Comments) Value History Slighlty/Non-Suspicious 0 ECG Nonspecific Repolarizatio 1 Age >45 - < 65 1 Risk Factors 1 or 2 Risk Factors 1 Troponin < Normal Limit 0 Total 3 Risk Factors: Risk Factors: DM, Current or recent (<one month) smoker, HTN, HLP, family hi story of CAD, obesity. Risk Scores: Score 0 - 3: 2.5% MACE over next 6 weeks - Discharge Home Score 4 - 6: 20.3% MACE over next 6 weeks - Admit for Clinical Observation Score 7 - 10: 72.7% MACE over next 6 weeks - Early Invasive Strategies Course & Med Decision Making: Course & Med Decision Making Pertinent Labs and Imaging studies reviewed. (See chart for details) Discussed presentation, testing and treatment plan with Dr. FAIR, advised to admit to his service on medical floor. Impression: 1. COPD exacerbation 2. CHF-BNP 5592 3. Chest pain 4. Renal insufficiency BUN 34 creatinine 2.5 5. Hypomagnesium serum 1.4 6. Tobacco abuse 7. Anemia- hemoglobin 10.5 8. Accelerated HTN 9. Protein Malnutrition- Alb.2.0 [] Dragon Disclaimer: Dragon Disclaimer: This electronic medical record was generated, in whole or in part, using a voice recognition dictation system. Departure Departure: Referrals: KELSY LEE MD (PCP) Dragon Disclaimer This chart was dictated in whole or in part using Voice Recognition software in a busy, high-work load, and often noisy Emergency Department environment. It may contain unintended and wholly unrecognized errors or omissions. RADHA REARDON MD Mar 19, 2021 04:31
[2021-03-19 04:40] LABS: ALK PHOS 122 U/L (46-116); ALT (SGPT) 10 U/L (16-63); ANION GAP 12 (6-14); AST (SGOT) 17 U/L (15-37); BLOOD UREA NITROGEN 34 mg/dL (8-26); CARBON DIOXIDE 22 mmol/L (21-32); CHLORIDE 111 mmol/L (98-107); CREATININE 2.5 mg/dL (0.7-1.3); GFR 26.8; GLUCOSE 178 mg/dL (70-99); MAGNESIUM 1.4 mg/dL (1.8-2.4); POTASSIUM 4.5 mmol/L (3.5-5.1); SODIUM 145 mmol/L (136-145); TOTAL BILIRUBIN 0.1 mg/dL (0.2-1.0); TOTAL PROTEIN 4.8 g/dL (6.4-8.2)
[2021-03-19 04:47] LABS: DIRECT BILIRUBIN < 0.1 mg/dL (0.0-0.2)
[2021-03-19] MEDS ORDERED: methylPREDNISolone SOD SUCC PF 125 MG/2 ML VIAL. IV ONE (06:00)
[2021-03-19] MEDS ORDERED: ACETAMINOPHEN 325 MG TABLET PO PRN (06:00)
[2021-03-19] MEDS ORDERED: FUROSEMIDE 40 MG/4 ML VIAL IVP ONE (06:00)
[2021-03-19] MEDS ORDERED: MAGNESIUM SULFATE 2GM 50 ML IV ONE (06:00)
[2021-03-19] MEDS ORDERED: ONDANSETRON PF 4 MG/2 ML VIAL. IVP PRN (06:00)
[2021-03-19] MEDS ORDERED: cloNIDine TTS-2 1 PATCH PATCH TD ONE ×2 (06:00→06:15)
--- NOTE | 2021-03-19 06:08 | RAD ---
XR CHEST 1V INDICATION: Reason: cp / Spl. Instructions: / History: . COMPARISON STUDY: 03/18/2021. FINDINGS: Lungs: Normal lung volume. No focal airspace disease. Normal pulmonary vasculature. Pleura: No pleural effusion or pneumothorax. Heart and Mediastinum: Stable cardiomediastinal silhouette and great vessels. IMPRESSION: No consolidation. Electronically signed by: Colin Strickland MD (03/19/2021 6:06 AM) [facility] CENTERGianna
[2021-03-19] MEDS ORDERED: AZITHROMYCIN 250 MG TABLET. PO ONE (06:45)
[2021-03-19 07:04] LABS: BARBITURATES NEG (NEG); BENZODIAZEPINES NEG (NEG); CANNABINOIDS NEG (NEG); COCAINE NEG (NEG); METHADONE NEG (NEG); OPIATES NEG (NEG); PHENCYCLIDINE NEG (NEG)
[2021-03-19 07:05] LABS: AMPHETAMINE/METHAMPHETAMINE NEG (NEG)
[2021-03-19 07:16] LABS: BILIRUBIN,URINE NEG (NEG); CLARITY,URINE CLEAR; COLOR,URINE STRAW; GLUCOSE,URINE 250 mg/dL (NEG); NITRITE,URINE NEG (NEG); UROBILINOGEN,URINE 0.2 mg/dL (0.2 mg/dL)
[2021-03-19 07:17] LABS: BACTERIA,URINE 0 /HPF (0-FEW); HYALINE CASTS, URINE OCC /HPF; SQUAMOUS EPITHELIAL CELL,UR OCC /LPF; WBC,URINE 0 /HPF (0-4)
[2021-03-19] MEDS: IPRATRPIUM/ALBUTEROL 0.5/2.5MG 3 ML NEBU. NEB SCH ×2 (08:00→09:42)
[2021-03-19 08:04] VITALS: BP 181/97
[2021-03-19] MEDS ORDERED: FUROSEMIDE 40 MG/4 ML VIAL IVP SCH (09:00)
[2021-03-19] MEDS ORDERED: methylPREDNISolone SOD SUCC PF 125 MG/2 ML VIAL. IV SCH (09:00)
[2021-03-19] MEDS ORDERED: NITROGLYCERIN OINT 1 GM PACKET. TP SCH (09:00)
[2021-03-19] MEDS ORDERED: QUET50TA PO (09:59)
[2021-03-19] MEDS ORDERED: ATOR20TA58 PO (09:59)
--- NOTE | 2021-03-19 13:20 | HP ---
ATTENDING PHYSICIAN: Dr. Burns I was called early on the morning of 03/19 to admit the patient for exacerbation of COPD, shortness of breath, multiple other medical issues as well as polysubstance abuse. The patient came to the floor. Unfortunately, he became very belligerent. He left AMA without the ability for me to see him. Therefore, he was not seen. He had left against medical advice prior to my visit with him. WILTON/ALDO/MARK DR: Edmond TID: [id number]
--- NOTE | 2021-03-19 18:21 | DS ---
DATE OF DISCHARGE: 03/19/2021 ATTENDING PHYSICIAN: Dr. Burns. HOSPITAL COURSE: This patient was admitted to my service with exacerbation of chronic obstructive pulmonary disease. He left AMA before I had a chance to see him. LAMAR DR: WILTON/zhen TID: [id number]
[2021-03-20] MEDS ORDERED: ASPIRIN ENTERIC COATED 81 MG TABLET.DR. PO SCH (08:00)
[2021-03-20] MEDS ORDERED: AZITHROMYCIN 250 MG TABLET. PO SCH (09:00)
--- NOTE | 2021-03-20 21:49 | EKG ---
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
== END 2021-03-19 10:40 | disposition left against medical advice (07) ==
LOC: ER 03:36 → 1 SOUTH 06:17 → INTOOBSV 06:17
PROVIDERS: ADMIT Hospitalist; ATTEND Hospitalist
DX: J44.1 Chronic obstructive pulmonary disease with (acute) exacerbation (principal); I11.0 Hypertensive heart disease with heart failure; I50.9 Heart failure, unspecified; E83.42 Hypomagnesemia; D64.9 Anemia, unspecified; F17.210 Nicotine dependence, cigarettes, uncomplicated; E46 Unspecified protein-calorie malnutrition; E11.9 Type 2 diabetes mellitus without complications; E78.00 Pure hypercholesterolemia, unspecified; G56.00 Carpal tunnel syndrome, unspecified upper limb; N28.9 Disorder of kidney and ureter, unspecified; Z68.28 Body mass index [BMI] 28.0-28.9, adult; Z90.49 Acquired absence of other specified parts of digestive tract; Z91.19 Patient's noncompliance with other medical treatment and regimen; Z79.82 Long term (current) use of aspirin
CPT/HCPCS: 36415; 71045; 80048; 80076; 80307; 81001; 82550; 82947; 83735; 83880; 84443; 84484; 85025; 85379; 85610; 85730; 93005; 96372; 96374; 96375; 99285; 99406; G0378; J1650; J1940; J2060; J2930; J7120; G0379

== ENCOUNTER 2021-03-29 20:50 | Emergency (ER) | payer MEDICAID ==
[~2021-03-29] VITALS: Ht 185.4 cm; Wt 98.6 kg
[~2021-03-29 20:50] MED LIST changes: +QUET50TA PO
--- NOTE | 2021-03-29 21:16 | PHYS DOC ---
Past History Past Medical History: Bronchitis, CHF, COPD, Diabetes, Hypertension (SUDARSHAN CAMPA APRN) Past Surgical History: Appendectomy Additional Past Surgical Histo: carpal tunnel (SUDARSHAN CAMPA APRN) Smoking: Cigarettes, Greater than 1 pack/day Alcohol Use: None Drug Use: None (SUDARSHAN CAMPA APRN) General Adult EDM: Chief Complaint: CHEST PAIN HPI: HPI: Patient is a 56-year-old male who presents to the ER by [facility] for multiple complaints. EMS reports that they were called for patient for an anxiety attack and a fall. When they arrived patient refused ambulance transfer. They reported that shortly after that they received another call to patient's home and patient son told EMS that they needed to transport patient for shortness of breath. EMS reports that patient's room air O2 sat was 84%, he does report shortness of breath along with a chronic cough. Patient states that he is supposed to have home oxygen but has not received it yet. Patient is also reporting left sided chest pain that started when he called EMS. The chest pain does not radiate, he rates it 8 out of 10, he cannot describe the pain. Patient does have a history of CHF and does have bilateral lower extremity edema he reports that his legs are always swollen. Patient reports that he did fall 1 hour prior to calling EMS. He states that he was trying to step up on a curb and is leg gave out and he fell. He is unsure if he hit his head he is unsure if he had any loss of consciousness. Patient is resistant to answering triage questions and he appears very anxious. Patient denies dizziness, fevers, abdominal pain, nausea, vomiting. (SUDARSHAN CAMPA APRN) Review of Systems: Review of Systems: 14 body systems of the review of systems have been reviewed. See HPI for pertinent positive and negative responses, otherwise all other systems are n egative, nonpertinent or noncontributory (SUDARSHAN CAMPA APRN) Allergies: Allergies: Allergies Coded Allergies Type Severity Reaction Last Updated Verified Penicillins Allergy Severe SWELLING 02/23/21 No (SUDARSHAN CAMPA APRN) Physical Exam: PE: Constitutional: Well developed, well nourished, no acute distress, non-toxic appearance. [] HENT: Normocephalic, atraumatic Eyes: PERRL, conjunctiva normal, no discharge. [] Neck: Normal range of motion, no stridor. [] Cardiovascular:Heart rate regular rhythm, no murmur [] Lungs & Thorax: Bilateral breath sounds clear to auscultation, nonproductive cough, no hypoxia patient's room air O2 sat is 93% [] Abdomen: Bowel sounds normal, soft, obese, no tenderness, no masses, no pulsatile masses. [] Skin: Warm, dry, no erythema, no rash. Abrasion noted to left anterior knee [] Back: No tenderness, normal range of motion [] Extremities: No tenderness, no cyanosis, no clubbing, ROM intact, 2+ pitting edema bilaterally. [] Neurologic: Alert and oriented X 3, normal motor function, normal sensory fu nction, no focal deficits noted. [] Psychologic: Affect normal, judgement normal, anxious mood [] (SUDARSHAN CAMPA APRN) Current Patient Data: Vital Signs: Vital Signs Date Time Temp Pulse Resp B/P (MAP) Pulse Ox O2 Delivery O2 Flow Rate FiO2 03/29/21 20:53 98.4 79 16 120/60 93 Room Air (SUDARSHAN CAMPA MODEL HOME SALES GREETER) EKG: EKG: EKG performed by ER staff at 2137 shows sinus rhythm no STEMI as read by Dr. Aceves (SUDARSHAN CAMPA APRN) Radiology/Procedures: Radiology/Procedures: PROCEDURE: CT HEAD AND CERVICAL SPINE WO Exam: CT head and cervical spine INDICATION: Fall, unknown head injury TECHNIQUE: Sequential axial images through the head and cervical spine were obtained without the administration of IV contrast. Exposure: One or more of the following in the visualized dose reduction techniques were utilized for this examination: 1. Automated exposure control 2. Adjustment of the MA and/or KV according to patient size 3. Use of iterative of reconstructive technique Comparisons: None FINDINGS: Head: No focal parenchymal lesion or hemorrhage is identified. There is no midline shift or sulcal effacement. No acute vascular territory infarction is identified. Salmon-white distinction is preserved. The ventricular system is within normal limits without compression hydrocephalus. The basal cisterns are well maintained. The visualized portions of the paranasal sinuses and mastoid air cells are well- pneumatized. No acute fractures. Cervical spine: Vertebral body heights and alignment are well-maintained. Fracture to the cervical spine is not identified. No significant spondylotic change in cervical spine. Visualized paraspinal soft tissues are unremarkable. IMPRESSION: 1. No acute intracranial abnormality. 2. Negative CT C-spine for acute traumatic injury. Electronically signed by: Fredy Estrada MD (03/29/2021 9:55 PM) [facility] DICTATED AND SIGNED BY: FREDY ESTRADA MD DATE: 03/29/212150 CC: KELSY LEE MD; RADHA ACEVES MD; SUDARSHAN CAMPA APRN ~MTH0 0 (SUDARSHAN CAMPA APRN) Heart Score: C/O Chest Pain: Yes HEART Score for Chest Pain: HEART Score for Chest Pain Response (Comments) Value History Moderately Suspicious 1 ECG Normal 0 Age >45 - < 65 1 Risk Factors >3 Risk Factors or Hx CAD (DM, SMOKER, HTN, OBESITY, CHF) 2 Troponin < Normal Limit 0 Total 4 Risk Factors: Risk Factors: DM, Current or recent (<one month) smoker, HTN, HLP, family history of CAD, obesity. Risk Scores: Score 0 - 3: 2.5% MACE over next 6 weeks - Discharge Home Score 4 - 6: 20.3% MACE over next 6 weeks - Admit for Clinical Observation Score 7 - 10: 72.7% MACE over next 6 weeks - Early Invasive Strategies (SUDARSHAN CAMPA APRN) Course & Med Decision Making: Course & Med Decision Making Pertinent Labs and Imaging studies reviewed. (See chart for details) Patient is a 56-year-old male being seen in the ER today for shortness of breath, chest pain. Patient is also being seen following a fall that occurred today with unknown injury or loss of consciousness. Work-up in the ER consisted of an EKG, blood work, CT scan of the head, chest x-ray. EKG showed sinus rhythm patient had a negative troponin. CT scan of head negative for any acute findings. CMP, BNP, chest x-ray pending at this time. Dr. Aceves assuming care of patient at this time 2200. (SUDARSHAN CAMPA APRN) Dragon Disclaimer: Dragon Disclaimer: This electronic medical record was generated, in whole or in part, using a voice recognition dictation system. (SUDARSHAN CAMPA APRN) Departure Departure: Referrals: KELSY LEE MD (PCP) Dragon Disclaimer This chart was dictated in whole or in part using Voice Recognition software in a busy, high-work load, and often noisy Emergency Department environment. It may contain unintended and wholly unrecognized errors or omissions. (RADHA ACEVES MD) Attending Signature Attending Signature I have participated in the care of this patient and I have reviewed and agree with all pertinent clinical information above including history, exam, and recommendations. (RADHA ACEVES MD) SUDARSHAN CAMPA APRN Mar 29, 2021 21:16 RADHA ACEVES MD Mar 30, 2021 06:23
[2021-03-29] MEDS ORDERED: MORPHINE SULFATE 10 MG/ML SYRINGE. ONE (21:26)
[2021-03-29 21:29] LABS: BASO # 0.1 x10^3/uL (0.0-0.2); BASO % 1 % (0-3); EOS # 0.3 x10^3/uL (0.0-0.7); EOS % 2 % (0-3); HEMATOCRIT 26.9 % (39.0-53.0); HEMOGLOBIN 8.7 g/dL (13.0-17.5); LYMPH # 1.1 x10^3/uL (1.0-4.8); LYMPH % 9 % (24-48); MEAN CORPUSCULAR HEMOGLOBIN 30 pg (25-35); MEAN CORPUSCULAR HGB CONC 32 g/dL (31-37); MEAN CORPUSCULAR VOLUME 92 fL (79-100); MONO # 0.8 x10^3/uL (0.0-1.1); MONO % 7 % (0-9); NEUT # 9.3 x10^3uL (1.8-7.7); NEUT % 81 % (31-73); PLATELET COUNT 239 x10^3/uL (140-400); RED BLOOD COUNT 2.93 x10^6/uL (4.30-5.70); WHITE BLOOD COUNT 11.5 x10^3/uL (4.0-11.0)
[2021-03-29 21:51] LABS: ALBUMIN/GLOBULIN RATIO 0.5 (1.0-1.7); CALCIUM 7.9 mg/dL (8.5-10.1); CREATININE 4.3 mg/dL (0.7-1.3); GFR 14.4; TOTAL BILIRUBIN 0.2 mg/dL (0.2-1.0); TOTAL PROTEIN 5.9 g/dL (6.4-8.2)
--- NOTE | 2021-03-29 21:57 | RAD ---
Exam: CT head and cervical spine INDICATION: Fall, unknown head injury TECHNIQUE: Sequential axial images through the head and cervical spine were obtained without the admi nistration of IV contrast. Exposure: One or more of the following in the visualized dose reduction techniques were utilized for this examination: 1. Automated exposure control 2. Adjustment of the MA and/or KV according to patient size 3. Use of iterative of reconstructive technique Comparisons: None FINDINGS: Head: No focal parenchymal lesion or hemorrhage is identified. There is no midline shift or sulcal effaceme nt. No acute vascular territory infarction is identified. Salmon-white distinction is preserved. The ventricular system is within normal limits without compression hydrocephalus. The basal cisterns are well maintained. The visualized portions of the paranasal sinuses and mastoid air cells are well-pneumatized. No acute fractures. Cervical spine: Vertebral body heights and alignment are well-maintained. Fracture to the cervical spine is not identified. No significant spondylotic change in cervical spine. Visualized paraspinal soft tissues are unremarkable. IMPRESSION: 1. No acute intracranial abnormality. 2. Negative CT C-spine for acute traumatic injury. Electronically signed by: Fredy Myrick MD (03/29/2021 9:55 PM) [facility] [place]
[2021-03-29 22:18] LABS: POTASSIUM 7.3 mmol/L (3.5-5.1)
--- NOTE | 2021-03-29 22:43 | EKG ---
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
[2021-03-29] MEDS ORDERED: DEXTROSE 50% 25 GM / 50ML DISP.SYRIN. IV ONE (23:15)
[2021-03-29] MEDS ORDERED: INSULIN REGULAR 100 UNIT/ML 3ML VIAL. IV ONE (23:15)
[2021-03-29] MEDS ORDERED: DEXTROSE 25% 10 ML DISP.SYRIN. IV ONE (23:15)
[2021-03-29] MEDS ORDERED: CALCIUM CHLORIDE 1,000 MG/10 ML DISP.SYRIN IV ONE (23:15)
[2021-03-29] MEDS ORDERED: FUROSEMIDE 40 MG/4 ML VIAL IVP ONE (23:15)
[2021-03-29] MEDS ORDERED: SODIUM POLYSTYRENE SULFONATE 15 GM/60 ML ORAL.SUSP. PO ONE (23:15)
[2021-03-29] MEDS ORDERED: IPRATRPIUM/ALBUTEROL 0.5/2.5MG 3 ML NEBU. NEB ONE (23:15)
[2021-03-30 00:12] VITALS: BP 157/82
--- NOTE | 2021-03-30 06:27 | RAD ---
EXAM: CHEST 1 VIEW History: Chest pain COMPARISON: 03/19/2021 TECHNIQUE: Single portable radiograph of the chest FINDINGS: Mild cardiomegaly. Moderate prominent bilateral interstitial lung markings project in the perihilar region likely interstitial infiltrates new since prior exam. IMPRESSION: Moderate prominent bilateral interstitial lung markings likely interstitial infiltrates or congestive changes. Electronically signed by: Andi Ospina MD (03/30/2021 6:24 AM) [id number]
== END 2021-03-30 00:12 | disposition left against medical advice (07) ==
LOC: ER 20:50
DX: R06.02 Shortness of breath (principal); R07.89 Other chest pain; R05 Cough; I11.0 Hypertensive heart disease with heart failure; I50.9 Heart failure, unspecified; J44.9 Chronic obstructive pulmonary disease, unspecified; E11.9 Type 2 diabetes mellitus without complications; F17.210 Nicotine dependence, cigarettes, uncomplicated; Z88.0 Allergy status to penicillin
CPT/HCPCS: 36415; 70450; 71045; 72125; 80053; 83880; 84484; 85025; 93005; 94640; 96374; 96375; 99285; J1815; J1940

== ENCOUNTER 2021-03-31 11:31 | Emergency (ER) | payer MEDICAID ==
[~2021-03-31] VITALS: Ht 182.9 cm; Wt 113.6 kg
--- NOTE | 2021-03-31 12:24 | RAD ---
EXAMINATION: Chest radiograph. VIEWS: Single view COMPARISON: 03/29/2021 INDICATION:56 years, Male, chest pain. FINDINGS: Stable cardiomediastinal silhouette. Essentially unchanged bilateral perihilar and basilar patchy air space opacities. No pleural effusion or pneumothorax. No acute osseous process. IMPRESSION: Essentially unchanged bilateral perihilar and basilar patchy airspace opacities, may represent atelec tasis, pulmonary edema or multifocal pneumonia. Electronically signed by: Willie Oliver MD (03/31/2021 12:22 PM) [id number]
--- NOTE | 2021-03-31 12:28 | EKG ---
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
[2021-03-31 13:04] LABS: BASO # 0.1 x10^3/uL (0.0-0.2); BASO % 0 % (0-3); EOS # 0.3 x10^3/uL (0.0-0.7); EOS % 2 % (0-3); HEMATOCRIT 26.1 % (39.0-53.0); HEMOGLOBIN 8.5 g/dL (13.0-17.5); LYMPH # 1.2 x10^3/uL (1.0-4.8); LYMPH % 10 % (24-48); MEAN CORPUSCULAR HEMOGLOBIN 30 pg (25-35); MEAN CORPUSCULAR HGB CONC 33 g/dL (31-37); MEAN CORPUSCULAR VOLUME 91 fL (79-100); MONO # 1.1 x10^3/uL (0.0-1.1); MONO % 9 % (0-9); NEUT # 10.1 x10^3uL (1.8-7.7); NEUT % 79 % (31-73); PLATELET COUNT 243 x10^3/uL (140-400); RED BLOOD COUNT 2.86 x10^6/uL (4.30-5.70); RED CELL DISTRIBUTION WIDTH 14.3 % (11.5-14.5); WHITE BLOOD COUNT 12.7 x10^3/uL (4.0-11.0)
[2021-03-31 13:23] LABS: ALBUMIN 1.9 g/dL (3.4-5.0); ALBUMIN/GLOBULIN RATIO 0.6 (1.0-1.7); CALCIUM 7.5 mg/dL (8.5-10.1); CREATININE 4.2 mg/dL (0.7-1.3); GFR 14.8; MAGNESIUM 1.4 mg/dL (1.8-2.4); POTASSIUM 5.9 mmol/L (3.5-5.1); TOTAL BILIRUBIN 0.1 mg/dL (0.2-1.0); TOTAL PROTEIN 4.9 g/dL (6.4-8.2)
[2021-03-31 14:00] VITALS: BP 157/87
--- NOTE | 2021-03-31 14:26 | RAD ---
Bilateral Lower Extremity Venous Doppler: Reason for examination: Bilateral lower extremity swelling. Chest pain and hypoxia. The lower extremity venous systems bilaterally were evaluated from the common femoral and greater sap henous veins distally to the calf veins with grayscale imaging, color-flow imaging and spectral harriet sis. There is normal blood flow without deep venous thrombosis. There is normal response of the venous sys tems to compression and augmentation. There is some edema in the soft tissues in the lower left leg. Lymph nodes measuring up to 2.5 cm in size are seen in the groin bilaterally. Impression: No deep venous thrombosis in the lower extremity venous systems bilaterally. Edema in the left lower leg. Lymph nodes in the groin measuring up to 2.5 cm in size. Electronically signed by: Mikala Mcgrath MD (03/31/2021 2:24 PM) [id number]
--- NOTE | 2021-03-31 14:26 | PHYS DOC ---
Past History Past Medical History: Bronchitis, CHF, COPD, Diabetes, Hypertension Past Surgical History: No Surgical History Additional Past Surgical Histo: carpal tunnel Smoking: Cigarettes, Greater than 1 pack/day Alcohol Use: Occasionally Drug Use: None General Adult EDM: Chief Complaint: CHEST PAIN HPI: HPI: 56-year-old male past medical history of diabetes, CHF, hypertension, obesity and hyperlipidemia who presents the ED BIBEMS from home after pt called 911, with complaints of distal sternal chest pain described as sharp, intermittent, nonradiating since last night with associated nausea and sweating. EMR was reviewed and patient was recently admitted to the hospital in the past 2 days, left AGAINST MEDICAL ADVICE. No recent echo. History somewhat limited due to patient cooperation -ignores frequent questions, requires repetition. Review of Systems: Review of Systems: Constitutional: Denies fever or chills Eyes: Denies change in visual acuity HENT: Denies nasal congestion or sore throat Respiratory: Denies cough or shortness of breath Cardiovascular: Denies hemoptysis or syncope GI: Denies abdominal pain, vomiting, : Denies dysuria or hematuria Musculoskeletal: Denies back pain or joint pain Integument: Denies rash or desquamation Neurologic: Denies headache, focal weakness or sensory changes Endocrine: Denies polyuria or polydipsia Lymphatic: Denies swollen glands Psychiatric: Denies depression or anxiety Allergies: Allergies: Allergies Coded Allergies Type Severity Reaction Last Updated Verified Penicillins Allergy Severe SWELLING 03/31/21 No Physical Exam: PE: Constitutional: Afebrile, no acute distress, non-toxic and unkept appearance, poor hygiene, not healthy appearing HENT: Normocephalic, atraumatic, dry mucous membranes Eyes: EOMI, conjunctiva normal, no discharge. Neck: Normal range of motion, supple, no nuchal rigidity or meningismus Cardiovascular: S1/2 present, regular rhythm Lungs & Thorax: Speaking in full sentences, bilateral equal chest rise, no tachypnea or increased work of breathing, Abdomen: soft, no tenderness, obese abdomen Skin: Warm, dry, no rash, multiple excoriations over lower extremities Extremities: No tenderness, no cyanosis,+1/4 bl equal LE edema Neurologic: Alert and oriented X 3, normal motor function, normal sensory function, no focal deficits noted. [] Psychologic: Normal judgment, mood to medical staff, is calm at rest but when attempting to arouse/elevate head of bed to hold a conversation, pt becomes rude and makes threats "Oh you're gonna get it" Current Patient Data: Labs: Laboratory Tests Test 03/31/21 12:15 03/31/21 12:39 Troponin I Quantitative 0.025 ng/mL (0-0.055) White Blood Count 12.7 x10^3/uL (4.0-11.0) H Red Blood Count 2.86 x10^6/uL (4.30-5.70) L Hemoglobin 8.5 g/dL (13.0-17.5) L Hematocrit 26.1 % (39.0-53.0) L Mean Corpuscular Volume 91 fL (79-100) Mean Corpuscular Hemoglobin 30 pg (25-35) Mean Corpuscular Hemoglobin Concent 33 g/dL (31-37) Red Cell Distribution Width 14.3 % (11.5-14.5) Platelet Count 243 x10^3/uL (140-400) Neutrophils (%) (Auto) 79 % (31-73) H Lymphocytes (%) (Auto) 10 % (24-48) L Monocytes (%) (Auto) 9 % (0-9) Eosinophils (%) (Auto) 2 % (0-3) Basophils (%) (Auto) 0 % (0-3) Neutrophils # (Auto) 10.1 x10^3uL (1.8-7.7) H Lymphocytes # (Auto) 1.2 x10^3/uL (1.0-4.8) Monocytes # (Auto) 1.1 x10^3/uL (0.0-1.1) Eosinophils # (Auto) 0.3 x10^3/uL (0.0-0.7) Basophils # (Auto) 0.1 x10^3/uL (0.0-0.2) Sodium Level 143 mmol/L (136-145) Potassium Level 5.9 mmol/L (3.5-5.1) H Chloride Level 111 mmol/L (98-107) H Carbon Dioxide Level 23 mmol/L (21-32) Anion Gap 9 (6-14) Blood Urea Nitrogen 86 mg/dL (8-26) H Creatinine 4.2 mg/dL (0.7-1.3) H Estimated GFR (Cockcroft-Gault) 14.8 BUN/Creatinine Ratio 20 (6-20) Glucose Level 188 mg/dL (70-99) H Calcium Level 7.5 mg/dL (8.5-10.1) L Magnesium Level 1.4 mg/dL (1.8-2.4) L Total Bilirubin 0.1 mg/dL (0.2-1.0) L Aspartate Amino Transferase (AST) 13 U/L (15-37) L Alanine Aminotransferase (ALT) 11 U/L (16-63) L Alkaline Phosphatase 102 U/L (46-116) Creatine Kinase 270 U/L (39-308) MM-Jgb-C-Type Natriuretic Peptide 1751 pg/mL (0-124) H Total Protein 4.9 g/dL (6.4-8.2) L Albumin 1.9 g/dL (3.4-5.0) L Albumin/Globulin Ratio 0.6 (1.0-1.7) L Lipase 107 U/L (73-393) Vital Signs: Vital Signs Date Time Temp Pulse Resp B/P (MAP) Pulse Ox O2 Delivery O2 Flow Rate FiO2 03/31/21 12:30 98.6 83 18 186/103 (130) 97 Nasal Cannula 2.0 EKG: EKG: Sinus rhythm 93 bpm, no axis deviation, normal intervals, T wave inversion lead III, no ST elevations or ST depressions, hyperacute/peaked T waves V3 and V4 Radiology/Procedures: Radiology/Procedures: IMAGING REPORT Signed PATIENT: NUNU HARMON ACCOUNT: [id number] : 1965 LOCATION: ER AGE: 56 SEX: M EXAM STATUS: REG ER ORD. PHYSICIAN: JUDY SAHNI DO REASON: yvonne PROCEDURE: PORTABLE CHEST 1V EXAMINATION: Chest radiograph. VIEWS: Single view COMPARISON: 03/29/2021 INDICATION:56 years, Male, chest pain. FINDINGS: Stable cardiomediastinal silhouette. Essentially unchanged bilateral perihilar and basilar patchy airspace opacities. No pleural effusion or pneumothorax. No acute osseous process. IMPRESSION: Essentially unchanged bilateral perihilar and basilar patchy airspace opacities, may represent atelectasis, pulmonary edema or multifocal pneumonia. Electronically signed by: Mohit Oliver MD (03/31/2021 12:22 PM) [id number] DICTATED AND SIGNED BY: MOHIT OLIVER MD DATE: 03/31/21 1221 CC: KELSY LEE MD; JUDY SAHNI DO ~MTH0 0 IMAGING REPORT Signed PATIENT: NUNU HARMON ACCOUNT: [id number] : 1965 LOCATION: ER AGE: 56 SEX: M EXAM STATUS: REG ER ORD. PHYSICIAN: JUDY SAHNI DO REASON: cp, hypoxia, r/o dvt PROCEDURE: VENOUS LOWER EXT BILATERAL Bilateral Lower Extremity Venous Doppler: Reason for examination: Bilateral lower extremity swelling. Chest pain and hypoxia. The lower extremity venous systems bilaterally were evaluated from the common femoral and greater saphenous veins distally to the calf veins with grayscale imaging, color-flow imaging and spectral analysis. There is normal blood flow without deep venous thrombosis. There is normal response of the venous systems to compression and augmentation. There is some edema in the soft tissues in the lower left leg. Lymph nodes measuring up to 2.5 cm in size are seen in the groin bilaterally. Impression: No deep venous thrombosis in the lower extremity venous systems bilaterally. Edema in the left lower leg. Lymph nodes in the groin measuring up to 2.5 cm in size. Electronically signed by: Cherise Piper MD (03/31/2021 2:24 PM) [id number] DICTATED AND SIGNED BY: CHERISE PIPER MD DATE: 03/31/21 1420 CC: KELSY LEE MD; JUDY SAHNI DO ~MTH0 0 Heart Score: C/O Chest Pain: Yes HEART Score for Chest Pain: HEART Score for Chest Pain Response (Comments) Value History Slighlty/Non-Suspicious 0 ECG Nonspecific Repolarizatio 1 Age >45 - < 65 1 Risk Factors >3 Risk Factors or Hx CAD 2 Troponin < Normal Limit 0 Total 4 Risk Factors: Risk Factors: DM, Current or recent (<one month) smoker, HTN, HLP, family history of CAD, obesity. Risk Scores: Score 0 - 3: 2.5% MACE over next 6 weeks - Discharge Home Score 4 - 6: 20.3% MACE over next 6 weeks - Admit for Clinical Observation Score 7 - 10: 72.7% MACE over next 6 weeks - Early Invasive Strategies Course & Med Decision Making: Course & Med Decision Making Pertinent Labs and Imaging studies reviewed. (See chart for details) Concern for chest pain in the setting of uncontrolled hypertension, concerning for symptomatic hypertension. Labs show acute on chronic kidney disease with hyperkalemia, improved from prior and hypomagnesemia. Lower extremity duplex with no evidence of lower extremity DVT. Chest x-ray concerning for atelectasis, pulmonary edema or multifocal pneumonia. Patient was initially on oxygen on arrival-easily weaned off, suspect from obesity with hypoventilation. Plan was to admit for serial troponins and further medical management. Patient stable time admission and agreed with this plan. Shortly after patient was admitted and admission orders were placed, patient removed his ID, requested food and stated he wanted to leave the emergency department AGAINST MEDICAL ADVICE, despite agreeing for admission ten minutes prior. This is pts' known behavior to myself, ed staff and Dr. Burns. Pt is a high risk for cardiac complications, life/limb threatening injuries and knows he is not medically cleared for discharge.. Pt has decision making capacity and refuses to wait for discharge paperwork, prescriptions and follow-up instructions. Pt refused to sign AMA paperwork. The patient has decided to leave our facility against medical advice. I have assessed patient's ability to make informed decision and feel the patient has the capacity to comprehend information regarding the current medical condition and appreciates the impact of the disease or condition and the consequences of various options for treatment, including foregoing treatment. The patient possesses the ability to evaluate all treatment options, comparing the risks and benefits of each option, communicate his or her choice in a consistent manner over time, and is able to make rational choices. I explained to the patient further testing, treatment, and evaluation I would like to perform in the emergency department visit as well as any possible alternatives that can be accomplished in a timely manner. I have outlined the possible risks of foregoing any or all of these interventions and the patient understands and acknowledges that the decision to leave may result in undesirable consequences such as , permanent disability, and/or loss of current lifestyle. Even though leaving AMA is not ideal, I have instructed the patient to follow any discharge instructions given, take any medications prescribed, and resume care as soon as possible with another provider. This conversation was witnessed by another member of the emergency department staff and we clearly communicated the patient is welcome to return anytime to continue care at our facility. Dragon Disclaimer: Dragon Disclaimer: This electronic medical record was generated, in whole or in part, using a voice recognition dictation system. Departure Departure: Impression: Primary Impression: Chest pain Additional Impressions: Uncontrolled hypertension Acute kidney injury superimposed on chronic kidney disease Hyperkalemia Hypomagnesemia Left against medical advice Disposition: LEFT AGAINST MEDICAL ADVICE Admitting Physician: Kelsy Burns Condition: STABLE Referrals: KELSY LEE MD (PCP) Patient Instructions: Chest Pain (Nonspecific), Discharge Against Medical Advice, Hypertension Additional Instructions: FOLLOW UP WITH CARDIOLOGY: FOR DEFINITIVE MANAGEMENT of chest pain [facility] [address] [facility] [address] [place] [address] OR [facility] [address] [address] FOLLOW UP WITH NEPHROLOGY: FOR DEFINITIVE MANAGEMENT for renal disease [facility] [address] [place] [place] [address] JUDY SAHNI DO Mar 31, 2021 14:26
[2021-03-31] MEDS ORDERED: MAGNESIUM SULFATE 2GM 50 ML IV ONE (14:30)
== END 2021-03-31 15:09 | disposition left against medical advice (07) ==
LOC: ER 11:31
DX: R07.89 Other chest pain (principal); E87.5 Hyperkalemia; E83.42 Hypomagnesemia; N17.9 Acute kidney failure, unspecified; I11.0 Hypertensive heart disease with heart failure; I50.9 Heart failure, unspecified; J44.9 Chronic obstructive pulmonary disease, unspecified; F17.210 Nicotine dependence, cigarettes, uncomplicated; Z88.0 Allergy status to penicillin
CPT/HCPCS: 36415; 71045; 80053; 82550; 83690; 83735; 83880; 84484; 85025; 93005; 93970; 99285-25